=== PATIENT | male | born 1985 | race Caucasian/White ===

== ENCOUNTER → 2018-09-06 16:42 | Outpatient (CLI) | payer OTHER, SELFPAY ==
[2018-09-06 17:35] LABS: Absolute Lymphocyte Count 2.18 X10^3/ul (0.83-4.51); Absolute Neutrophil Count 4.9 X10^3/uL (2.0-7.7); Basophil# 0.02 X10^3/uL; Basophil% 0.3 % (0-1); Eosinophil# 0.18 X10^3/uL; Eosinophils% 2.3 % (0-5); Hemoglobin 14.2 g/dl (13.0-16.5); Lymphocyte # 2.18 X10^3/ul (4.0); Lymphocyte % 28.3 % (19-41); Mean Corp Hgb Conc 35.5 g/gl (32-36); Mean Corpuscular Hgb 28.8 pg (27.0-32.0); Mean Corpuscular Volume 81.1 fL (80-94); Mean Platelet Vol. 9.4 fl (6.2-12.0); Monocyte# 0.39 X10^3/uL; Monocyte% 5.1 % (0-10); Neutrophil # 4.93 X10^3/uL (2.7-7.7); Neutrophil % 63.9 % (47-70); POSITIVE COUNT NO; POSITIVE DIFFERENTIAL NO; POSITIVE MORPHOLOGY NO; Platelet Count 241 K/mm3 (150-450); RBC Distribution Width CV 12.1 % (11.6-14.6); RBC Distribution Width SD 34.9 fl (35.1-43.9); Red Blood Count 4.93 M/mm3 (4.6-6.2); White Blood Count 7.7 K/mm3 (4.4-11.0)
[2018-09-06 18:13] LABS: ALB/GLOB Ratio 1.1 RATIO (0.9-2.4); AST(SGOT) 18 U/L (15-37); Alanine Aminotransfer ALT/SGPT 26 U/L (16-61); Albumin, Serum 4.2 g/dL (3.2-5.0); Alkaline Phosphatase 78 U/L (45-117); Anion Gap 4 (5-15); BUN 15 mg/dL (7-18); BUN/Creat Ratio 14.4 RATIO (10-20); Calcium,Total 8.9 mg/dL (8.5-10.1); Chloride 105 mmol/L (98-107); Creatinine, Serum 1.04 mg/dL (0.70-1.30); EST Glomerular Filtration Rate 89 mL/min (>60); Est Glom Filt Rate - Afr Amer 107 mL/min (>60); Globulin 3.7 g/dL (2.2-4.2); Glucose 87 mg/dL (74-106); Potassium 3.8 mmol/L (3.5-5.1); Protein, Total 7.9 g/dL (6.4-8.2); Sodium Level 138 mmol/L (136-145)
[2018-09-09 20:07] LABS: HEPATITIS B SURFACE AG Negative (Negative); Hepatitis A AB, Total Negative (Negative); Hepatitis A IgM Antibody Negative (Negative); Hepatitis B Core AB IgM Negative (Negative); Hepatitis B Core Ab Total Negative (Negative); Hepatitis C Ab 0.1 s/co ratio (0.0-0.9); QNTFERON TB Mitogen Value > 10.00 IU/mL (.); QNTFERON TB Nil Value 0.02 IU/mL (.); QNTFERON TB1+ Ag Value 0.02 IU/mL (.); QNTFERON TB2+ Ag Value 0.03 IU/mL (.)
[2018-09-10 15:15] LABS: Hep B Surface Antibodies Non Reactive (.); QNTIFERON TB Positive Criteria Negative (Negative)
== END ==
LOC: MTLAB 16:50
PROVIDERS: Family Provider Family Medicine; PCP Family Medicine; Referring Provider Dermatology Pediatric Dermatology; Visit Provider Dermatology Pediatric Dermatology
DX: L40.0 Psoriasis vulgaris (principal); L40.59 Other psoriatic arthropathy; Z79.899 Other long term (current) drug therapy
CPT/HCPCS: 36415; 80053; 85025; 86480; 86704; 86705; 86706; 86708; 86709; 86803; 87340

== ENCOUNTER → 2019-07-27 08:30 | Outpatient (CLI) | payer OTHER, SELFPAY ==
[2019-07-27 10:10] LABS: Absolute Lymphocyte Count 1.76 X10^3/uL (0.83-4.51); Basophil# 0.02 X10^3/uL; Basophil% 0.3 % (0-1); Eosinophil# 0.12 X10^3/uL; Eosinophils% 1.9 % (0-5); Hematocrit 42.1 % (40-54); Hemoglobin 14.1 g/dL (13.0-16.5); Lymphocyte # 1.76 X10^3/ul (4.0); Lymphocyte % 27.3 % (19-41); Mean Corp Hgb Conc 33.5 g/dL (32-36); Mean Corpuscular Hgb 27.7 pg (27.0-32.0); Mean Corpuscular Volume 82.7 fL (80-94); Mean Platelet Vol. 9.9 fl (6.2-12.0); Monocyte% 7.8 % (0-10); NRBC Flagged by Analyzer 0 % (0-5); Neutrophil # 4.03 X10^3/uL (2.7-7.7); Neutrophil % 62.4 % (47-70); Platelet Count 251 K/mm3 (150-450); RBC Distribution Width CV 11.9 % (11.6-14.6); RBC Distribution Width SD 35.3 fl (35.1-43.9); Red Blood Count 5.09 M/mm3 (4.6-6.2); White Blood Count 6.5 K/mm3 (4.4-11.0)
[2019-07-27 10:31] LABS: AST(SGOT) 21 U/L (15-37); Alanine Aminotransfer ALT/SGPT 50 U/L (16-61); Albumin, Serum 3.9 g/dL (3.2-5.0); Alkaline Phosphatase 78 U/L (45-117); Anion Gap 6 (5-15); BUN 11 mg/dL (7-18); BUN/Creat Ratio 14.6 RATIO (10-20); Calcium,Total 9.2 mg/dL (8.5-10.1); Chloride 105 mmol/L (98-107); Creatinine, Serum 0.75 mg/dL (0.70-1.30); EST Glomerular Filtration Rate 128 mL/min (>60); Est Glom Filt Rate - Afr Amer 155 mL/min (>60); Glucose 89 mg/dL (74-106); Protein, Total 7.9 g/dL (6.4-8.2); Sodium Level 139 mmol/L (136-145)
[2019-07-31 03:06] LABS: QNTFERON TB Mitogen Value > 10.00 IU/mL (.); QNTFERON TB Nil Value 0.01 IU/mL (.); QNTFERON TB1+ Ag Value 0.02 IU/mL (.); QNTFERON TB2+ Ag Value 0.02 IU/mL (.)
[2019-07-31 11:57] LABS: QNTIFERON TB Positive Criteria Negative (Negative)
== END ==
LOC: MTLAB 08:32
PROVIDERS: PCP Family Medicine; Referring Provider Nurse Practitioner Family; Visit Provider Nurse Practitioner Family
DX: L40.0 Psoriasis vulgaris (principal); Z79.899 Other long term (current) drug therapy
CPT/HCPCS: 36415; 80053; 85025; 86480

== ENCOUNTER → 2020-08-08 08:39 | Outpatient (CLI) | payer OTHER, SELFPAY ==
[2020-08-08 10:22] LABS: Absolute Lymphocyte Count 1.57 X10^3/uL (0.83-4.51); Absolute Neutrophil Count 3.9 X10^3/uL (2.0-7.7); Basophil# 0.03 X10^3/uL; Basophil% 0.5 % (0-1); Eosinophil# 0.11 X10^3/uL; Eosinophils% 1.8 % (0-5); Hematocrit 41.4 % (40-54); Hemoglobin 14.4 g/dL (13.0-16.5); Lymphocyte # 1.57 X10^3/ul (4.0); Mean Corp Hgb Conc 34.8 g/dL (32-36); Mean Corpuscular Volume 83.3 fL (80-94); Mean Platelet Vol. 9.6 fl (6.2-12.0); Monocyte# 0.38 X10^3/uL; Monocyte% 6.3 % (0-10); NRBC Flagged by Analyzer 0 % (0-5); Neutrophil # 3.92 X10^3/uL (2.7-7.7); Neutrophil % 64.9 % (47-70); Platelet Count 254 K/mm3 (150-450); RBC Distribution Width CV 12.4 % (11.6-14.6); RBC Distribution Width SD 36.7 fl (35.1-43.9); Red Blood Count 4.97 M/mm3 (4.6-6.2)
[2020-08-08 10:36] LABS: Anion Gap 4 (5-15); BUN 11 mg/dL (7-18); BUN/Creat Ratio 13.3 RATIO (10-20); Calcium,Total 9.4 mg/dL (8.5-10.1); Chloride 104 mmol/L (98-107); Creatinine, Serum 0.83 mg/dL (0.70-1.30); EST Glomerular Filtration Rate 114 mL/min (>60); Est Glom Filt Rate - Afr Amer 138 mL/min (>60); Glucose 103 mg/dL (74-106); Potassium 3.8 mmol/L (3.5-5.1); Sodium Level 138 mmol/L (136-145)
[2020-08-11 03:06] LABS: QNTFERON TB Mitogen Value > 10.00 IU/mL (.); QNTFERON TB Nil Value 0.04 IU/mL (.); QNTFERON TB2+ Ag Value 0.04 IU/mL (.)
[2020-08-11 13:26] LABS: QNTIFERON TB Positive Criteria Negative (Negative)
== END ==
LOC: MTLAB 08:41
PROVIDERS: PCP Family Medicine; Referring Provider Physician Assistant; Visit Provider Physician Assistant
DX: L40.0 Psoriasis vulgaris (principal); Z79.899 Other long term (current) drug therapy
CPT/HCPCS: 36415; 80048; 85025; 86480

== ENCOUNTER → 2022-09-09 | Outpatient (CLI) | payer OTHER, SELFPAY ==
--- NOTE | 2022-09-09 10:02 | RAD_ITS ---
INDICATION: OTHER PSORIATIC ARTHROPATHY EXAMINATION/TECHNIQUE: X-RAY - XR Chest 2 Views COMPARISON: FINDINGS: LINES/DEVICES: None. LUNGS: No consolidation. No pneumothorax. MEDIASTINUM: Unremarkable. CARDIAC SILHOUETTE: Not enlarged. BONES AND SOFT TISSUES: No acute abnormalities. RAD/Chest PA and Lateral IMPRESSION: No evidence of active intrathoracic disease. Electronically Signed: Huma Lopez MD at 7:29 EDT ,
--- NOTE | 2022-09-09 10:02 | RAD_ITS ---
INDICATION: OTHER PSORIATIC ARTHROPATHY EXAMINATION/TECHNIQUE: X-RAY - XR Pelvis 1 or 2 Views COMPARISON: None. FINDINGS: No fracture demonstrated. The femoral heads are normal contour. No dislocation of the hips. The sacroiliac joints are symmetric and unremarkable. RAD/Pelvis 1 or 2 Views IMPRESSION: Unremarkable single view pelvis. Electronically Signed: Huma Lopez MD at 7:30 EDT ,
[2022-09-09 12:40] LABS: Absolute Neutrophil Count 4.3 X10^3/uL (2.0-7.7); Basophil# 0.04 X10^3/uL; Basophil% 0.6 % (0-1); Eosinophil# 0.11 X10^3/uL; Eosinophils% 1.7 % (0-5); Hematocrit 43.3 % (40-54); Hemoglobin 14.7 g/dL (13.0-16.5); Lymphocyte % 24.7 % (19-41); Mean Corp Hgb Conc 33.9 g/dL (32-36); Mean Corpuscular Hgb 28.5 pg (27.0-32.0); Mean Corpuscular Volume 84.1 fL (80-94); Mean Platelet Vol. 9.9 fl (6.2-12.0); Monocyte# 0.38 X10^3/uL; Monocyte% 5.9 % (0-10); NRBC Flagged by Analyzer 0 % (0-5); Neutrophil # 4.33 X10^3/uL (2.7-7.7); Neutrophil % 66.6 % (47-70); Platelet Count 282 K/mm3 (150-450); RBC Distribution Width CV 11.9 % (11.6-14.6); RBC Distribution Width SD 35.9 fl (35.1-43.9); Red Blood Count 5.15 M/mm3 (4.6-6.2); White Blood Count 6.5 K/mm3 (4.4-11.0)
[2022-09-09 13:26] LABS: ALB/GLOB Ratio 0.9 RATIO (0.9-2.4); AST(SGOT) 21 U/L (15-37); Alanine Aminotransfer ALT/SGPT 33 U/L (16-61); Albumin, Serum 3.9 g/dL (3.2-5.0); Alkaline Phosphatase 78 U/L (45-117); Anion Gap 3 (5-15); BUN 9 mg/dL (7-18); BUN/Creat Ratio 11.9 RATIO (10-20); CRP 6.88 mg/L (0.0-3.0); Calcium,Total 9.7 mg/dL (8.5-10.1); Chloride 106 mmol/L (98-107); Creatinine, Serum 0.76 mg/dL (0.70-1.30); EST Glomerular Filtration Rate 125 mL/min (>60); Est Glom Filt Rate - Afr Amer 151 mL/min (>60); Globulin 4.2 g/dL (2.2-4.2); Glucose 89 mg/dL (74-106); Potassium 3.9 mmol/L (3.5-5.1); Protein, Total 8.1 g/dL (6.4-8.2); Sodium Level 138 mmol/L (136-145)
[2022-09-09 14:10] LABS: Hepatitis B Surface Antibody Non-Reactive; Hepatitis B Surface Antigen Non-Reactive (Nonreactive); Hepatitis C Antibody Non-Reactive (Nonreactive)
[2022-09-09 14:36] LABS: Erythrocyte Sedimentation Rate 6 mm/hr (0-20)
[2022-09-11 16:09] LABS: CCP IgG Antibodies 10 units (0-19); QNTFERON TB Mitogen Value > 10.00 IU/mL (.); QNTFERON TB Nil Value 0 IU/mL (.); QNTFERON TB1+ Ag Value 0 IU/mL (.); QNTFERON TB2+ Ag Value 0 IU/mL (.); QNTIFERON TB Positive Criteria Negative (Negative)
== END | disposition home or self-care (01) ==
LOC: MTLAB 09:59
PROVIDERS: PCP Nurse Practitioner Family; Referring Provider Internal Medicine Rheumatology; Visit Provider Internal Medicine Rheumatology
DX: L40.59 Other psoriatic arthropathy (principal); M79.7 Fibromyalgia
CPT/HCPCS: 36415; 71046; 72170; 80053; 85025; 85652; 86140; 86200; 86431; 86480; 86706; 86803; 87340

== ENCOUNTER → 2024-11-03 | Outpatient (CLI) | payer OTHER, SELFPAY ==
[2024-11-03 16:16] LABS: ALB/GLOB Ratio 1.4 RATIO (0.9-2.4); AST(SGOT) 21 U/L (<=37); Alanine Aminotransfer ALT/SGPT 21 U/L (<=46); Albumin, Serum 4.4 g/dL (3.5-5.0); Alkaline Phosphatase 80 U/L (40-129); Anion Gap 13 (5-15); BUN 11 mg/dL (4-19); BUN/Creat Ratio 16.3 RATIO (10-20); CRP 6.53 mg/L (0.0-3.0); Calcium,Total 9.5 mg/dL (7.6-11.0); Carbon Dioxide 23.8 mmol/L (21.0-32.0); Chloride 103 mmol/L (98-108); Creatinine, Serum 0.68 mg/dL (0.70-1.20); EST Glomerular Filtration Rate 123 (>60); Globulin 3.1 g/dL (2.2-4.2); Glucose 96 mg/dL (70-99); Hepatitis B Surface Antigen Nonreactive (Nonreactive); Hepatitis C Antibody Nonreactive (Nonreactive); Potassium 3.7 mmol/L (3.3-5.1); Protein, Total 7.4 g/dL (5.9-8.4); Rheumatoid Factor 24.5 IU/mL (<15); Sodium Level 140 mmol/L (133-145); Total Bilirubin 0.51 mg/dL (0.00-1.30)
[2024-11-03 16:48] LABS: Hepatitis B Surface Antibody Nonreactive
[2024-11-03 17:02] LABS: Absolute Lymphocyte Count 1.79 X10^3/uL (0.83-4.51); Absolute Neutrophil Count 4.9 X10^3/uL (2.0-7.7); Basophil# 0.02 X10^3/uL; Basophil% 0.3 % (0-1); Eosinophils% 1.4 % (0-5); Hematocrit 41.1 % (40-54); Hemoglobin 14.1 g/dL (13.0-16.5); Lymphocyte # 1.79 X10^3/ul (0.83-4.51); Lymphocyte % 24.4 % (19-41); Mean Corp Hgb Conc 34.3 g/dL (32-36); Mean Corpuscular Hgb 28.4 pg (27.0-32.0); Mean Corpuscular Volume 82.9 fL (80-94); Mean Platelet Vol. 9.9 fl (6.2-12.0); Monocyte# 0.53 X10^3/uL; Monocyte% 7.2 % (0-10); NRBC Flagged by Analyzer 0 % (0-5); Neutrophil # 4.86 X10^3/uL (2.7-7.7); Neutrophil % 66.2 % (47-70); Platelet Count 282 K/mm3 (150-450); RBC Distribution Width CV 12.2 % (11.6-14.6); RBC Distribution Width SD 36.6 fl (35.1-43.9); Red Blood Count 4.96 M/mm3 (4.6-6.2); White Blood Count 7.3 K/mm3 (4.4-11.0)
[2024-11-03 17:16] LABS: Erythrocyte Sedimentation Rate 9 mm/hr (0-20)
--- OUTSIDE RECORDS SUMMARY | 2024-11-03 17:58 | XMS RPT_ITS | CCD ---
Author Organization [facility] Inform ion [facility] Care Team Providers Care Petroleum Geologist Name Role Phone NIKOLAI VENTURA Unavailable Unavailable FAUZIAELDAICA L Unavailable Unavailabl e RENEE BARR Unavailable Unavaila JEFERSON Pack Unavailable Unavailable FAUZIA, LAVERN-AN L Unavailable Unavailabl e FAUZIA, IQRAAN L Unavailable Unavailabl e Baljit SOLUTION DESIGN AND ANALYSIS MANAGER-FUEL ISLAND ATTENDANTMala Primary Care Provider PIERCE SANCHEZ Referring Unavailable MALA WAN Attending Unavailable MALA WAN Primary Care Unavailable Sophie Herndon Attending Unavailable Sophie Herndon Referring Unavailable Mala aWn NP Primary Care Unavailable SOPHIE HERNDON Attending Unavailable SOPHIE HERNDON Primary Care Unavailable SOPHIE HERNDON Admitting Unavailable SOPHIE HERNDON MD Admitting Unavailable SOPHIE HERNDON MD Attending Unavailable SOPHIE HERNDON MD Primary Care Unavailable Unavailable Primary Care Provider Unavailabl e Petros'GWEN EATON Referring Unavailable O'ANGELITO, GWEN Referring Unavailable O'ANGELITO, GWEN Referring Unavailable O'ANGELITO, GWEN Referring Unavailable O'ANGELITO, GWEN Referring Unavailable O'ANGELITO, GWEN Referring Unavailable O'ANGELITO, GWEN Referring Unavailable O'ANGELITO, GWEN Referring Unavailable O'ANGELITO, GWEN Referring Unavailable O'ANGELITO, GWEN Referring Unavailable O'ANGELITO, GWEN Referring Unavailable O'ANGELITO, GWEN Referring Unavailable O'ANGELITO, GWEN Referring Unavailable Medications Current Medications Medication Drug Class(es) Dates Sig (Normalized) Sig (Original) Albuterol (13 sources) beta2-Adrenergic Agonist ALBUTEROL INHALATION Inhale as instructed as needed. 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 Other upper respiratory disease (1 source) Vocal cord dysfunction; Translations: [Other diseases of vocal cords] Episodic Spondylosis; intervertebral disc disorders; other back problems (20 sources) Acute low back pain; Translations: [Acute bilateral low back pain, unspecified whether sciatica present] Onset: 01-25-2024 01-25-2024 Episodic Unclassified (1 source) Unknown / UNK(Unknown) Onset: 03-30-2017 Unclassified (1 source) Acute bilateral low back pain without sciatica; Translations: [Acute bilateral low back pain without sciatica] Onset: 01-25-2024 Unclassified (1 source) Physical Therapy Onset: 03-01-2024 Unclassified (1 source) Acute bilateral low back pain, unspecified whether sciatica present; Translations: [Acute bilateral low back pain, unspecified whether sciatica present] Onset: 01-25-2024 Past or Other Problems Problem Classification Problem Date Documented Da te Episodic/Chronic Unclassified (1 source) SINUS ISSUES Onset: 03-30-2017 Results Test Name Value Interpretation Reference Range [facility] OT/PT/Speech Visit (UNPTOP) ----- TATY LOYA ([id number]) 1985 M Date Time Provider Department 03/09/24 2:45 PM THERESA FERMIN Date Time Provider Department [place] 03/09/2024 2:45 PM [id number] FERMIN Pending Sale To [facility] Reason for Visit: Physical Therapy [503] PT Discharge [752] Primary Visit Diagnosis:Acute bilateral low back pain without sciatica [M54.50] Allergies As of Date: 03/09/2024 (No Known Allergies) Date Reviewed: 02/27/2021 Reviewed by: Kyara Hickman MA - Fully Assessed Prescriptions as of 05/08/2024 - TALTZ AUTOINJECTOR 80 mg/mL pen - ALBUTEROL INHALATION Inhale as instructed as needed. Custodial Operations Manager: Addendum Therapy (PT/OT/Speech/Resp) ID: [id number] 03/09/2024 3:48 PM Author: THERESA FERMIN Signed by THERESA FERMIN PT on 03/09/2024 at 3:48 PM * * * This document replaces document [id number] * * * Document text: Program_ID:[id number] Access Code: [email or web address] URL: [email or web address] Date: 03-09-2024 Prepared By: Theresa Fermin Program Notes Exercises - Seated Hamstring Stretch - 1 x daily - 7 x weekly - 3 sets - 10 reps - Roller Massage Elongated Hamstring Release - 1 x daily - 7 x weekly - 3 sets - 10 reps - Supine Hamstring Stretch with Strap - 1 x daily - 7 x weekly - 3 sets - 10 reps - Supine Single Knee to Chest Stretch - 1 x daily - 7 x weekly - 3 sets - 10 reps - Prone Press Up - 1 x daily - 7 x weekly - 3 sets - 10 reps - Supine Posterior Pelvic Tilt - 1 x daily - 7 x weekly - 3 sets - 10 reps - Goblet Squat with Kettlebell - 1 x daily - 7 x weekly - 3 sets - 10 reps - Single-Leg Solomon Islander Deadlift With Kettlebell - 1 x daily - 7 x weekly - 3 sets - 10 reps - Kettlebell Bottom Up Carry - 1 x daily - 7 x weekly - 3 sets - 10 reps - Half-Kneeling Bottoms Up Kettlebell Overhead Press - 1 x daily - 7 x weekly - 3 sets - 10 reps - Kettlebell Drag - 1 x daily - 7 x weekly - 3 sets - 10 reps - Spanish Twists Feet off Ground with Ball - 1 x daily - 7 x weekly - 3 sets - 10 reps - Bent Over Single Arm Shoulder Row with Dumbbell - 1 x daily - 7 x weekly - 3 sets - 10 reps - Side Stepping with Resistance at Ankles - 1 x daily - 7 x weekly - 3 sets - 10 reps - Forward Monster Walks - 1 x daily - 7 x weekly - 3 sets - [address] [facility] THERAPY NTon 03-09-2024 THERAPY NT HNO ID: [id number] Author: THERESA FERMIN PT Service: ? Author Type: Physical Therapist Type: Therapy (PT/OT/Speech/Resp) Filed: 03/09/2024 15:48 Note Text: Program_ID:[id number] Access Code: [email or web address] URL: [email or web address] Date: 03-09-2024 Prepared By: Theresa Fermin Program Notes Exercises - Seated Hamstring Stretch - 1 x daily - 7 x weekly - 3 sets - 10 reps - Roller Massage Elongated Hamstring Release - 1 x daily - 7 x weekly - 3 sets - 10 reps - Supine Hamstring Stretch with Strap - 1 x daily - 7 x weekly - 3 sets - 10 reps - Supine Single Knee to Chest Stretch - 1 x daily - 7 x weekly - 3 sets - 10 reps - Prone Press Up - 1 x daily - 7 x weekly - 3 sets - 10 reps - Supine Posterior Pelvic Tilt - 1 x daily - 7 x weekly - 3 sets - 10 reps - Goblet Squat with Kettlebell - 1 x daily - 7 x weekly - 3 sets - 10 reps - Single-Leg [place] Islander Deadlift With Kettlebell - 1 x daily - 7 x weekly - 3 sets - 10 reps - Kettlebell Bottom Up Carry - 1 x daily - 7 x weekly - 3 sets - 10 reps - Half-Kneeling Bottoms Up Kettlebell Overhead Press - 1 x daily - 7 x weekly - 3 sets - 10 reps - Kettlebell Drag - 1 x daily - 7 x weekly - 3 sets - 10 reps - Spanish Twists Feet off Ground with Ball - 1 x daily - 7 x weekly - 3 sets - 10 reps - Bent Over Single Arm Shoulder Row with Dumbbell - 1 x daily - 7 x weekly - 3 sets - 10 reps - Side Stepping with Resistance at Ankles - 1 x daily - 7 x weekly - 3 sets - 10 reps - Forward Monster Walks - 1 x daily - 7 x weekly - 3 sets - [address] [facility] CNTHERAPYon 03-07-2024 CNTHERAPY OT/PT/Speech Visit (UNPTOP) ----- TATY LOYA ([id number]) 1985 M Date Time Provider Department 03/07/24 7:00 AM THERESA FERMIN Date Time Provider Department Center 03/07/2024 7:00 AM [id number], AMANDA [employer] Pending Sale To [facility] Reason for Visit: Physical Therapy [503] Primary Visit Diagnosis:Acute bilateral low back pain without sciatica [M54.50] Allergies As of Date: 03/07/2024 (No Known Allergies) Date Reviewed: 02/27/2021 Reviewed by: Kyara Hickman MA - Fully Assessed Prescriptions as of 03/07/2024 - TALTZ AUTOINJECTOR 80 mg/mL pen - ALBUTEROL INHALATION [facility]hale [facility]/PT/Speech Visit (UNPTOP) ----- TAYT LOYA ([id number]) 1985 M Date Time Provider Department 03/01/24 2:45 PM SHAKIRA HEATON [facility] Date Time Provider Department Center 03/01/2024 2:45 PM [id number] SHAKIRA [facility] [employer] [facility] Reason for Visit: Physical Therapy [503] Primary Visit Diagnosis:Acute bilateral low back pain without sciatica [M54.50] Other Visit Diagnosis:Acute bilateral low back pain, unspecified whether sciatica present [M54.50] Allergies As of Date: 03/01/2024 (No Known Allergies) Date Reviewed: 02/27/2021 Reviewed by: Kyara Hickman MA - Fully Assessed Prescriptions as of 03/01/2024 - TALTZ AUTOINJECTOR 80 mg/mL pen - ALBUTEROL INHALATION Inhale as instructed as needed. [facility] ----- TATY LOYA ([id number]) 1985 M Date Time Provider Department 02/28/24 2:00 PM THERESA FERMIN [facility] Date Time Provider Department Center 02/28/2024 2:00 PM [id number], THERESA [facility] Reason for Visit: Physical Therapy [503] Primary Visit Diagnosis:Acute bilateral low back pain without sciatica [M54.50] Allergies As of Date: 02/28/2024 (No Known Allergies) Date Reviewed: 02/27/2021 Reviewed by: Kyara Hickman MA - Fully Assessed Prescriptions as of 02/28/2024 - TALTZ AUTOINJECTOR 80 mg/mL pen - ALBUTEROL INHALATION Inhale as instructed as needed. [facility] 02-25-2024 CNTHERAPY OT/PT/Speech Visit (UNPTOP) ----- TATY LOYA ([id number]) 1985 M Date Time Provider Department 02/25/24 1:15 PM [facility] [employer] Date Time Provider Department Center 02/25/2024 1:15 PM [id number], [facility]ESA [facility] Reason for Visit: PT Progress Note [1596] Primary Visit Diagnosis:Acute bilateral low back pain without sciatica [M54.50] Allergies As of Date: 02/25/2024 (No Known Allergies) Date Reviewed: 02/27/2021 Reviewed by: Kyara Hickman MA - Fully Assessed Prescriptions as of 02/25/2024 - TALTZ AUTOINJECTOR 80 mg/mL pen - ALBUTEROL INHALATION Inhale as instructed as needed. [facility] 02-21-2024 CNTHERAPY OT/PT/Speech Visit (UNPTOP) ----- TATY LOYA ([id number]) 1985 M Date Time Provider Department 02/21/24 2:45 PM [facility] Date Time Provider Department Center 02/21/2024 2:45 PM [id number] SHAKIRA [employer] Reason for Visit: Physical Therapy [503] Primary Visit Diagnosis:Acute bilateral low back pain without sciatica [M54.50] Other Visit Diagnosis:Acute bilateral low back pain, unspecified whether sciatica present [M54.50] Allergies As of Date: 02/21/2024 (No Known Allergies) Date Reviewed: 02/27/2021 Reviewed by: Kyara Hickman MA - Fully Assessed Prescriptions as of 02/21/2024 - TALTZ AUTOINJECTOR 80 mg/mL pen - ALBUTEROL INHALATION Inhale as instructed as needed. [facility] 02-14-2024 CNTHERAPY OT/PT/Speech Visit (UNPTOP) ----- TATY LOYA ([id number]) 1985 M Date Time Provider Department 02/14/24 2:00 PM SHAKIRA HEATON Date Time Provider Department Center 02/14/2024 2:00 PM [id number], SHAKIRA [employer] Pending Sale To [facility] Reason for Visit: Physical Therapy [503] Primary Visit Diagnosis:Acute bilateral low back pain without sciatica [M54.50] Other Visit Diagnosis:Acute bilateral low back pain, unspecified whether sciatica present [M54.50] Allergies As of Date: 02/14/2024 (No Known Allergies) Date Reviewed: 02/27/2021 Reviewed by: Kyara Hickman MA - Fully Assessed Prescriptions as of 02/14/2024 - TALTZ AUTOINJECTOR 80 mg/mL pen - ALBUTEROL INHALATION Inhale as instructed as needed. [facility] CN[facility]Y OT/PT/Speech Visit (UNPTOP) ----- TATY LOYA ([id number]) 1985 M Date Time Provider Department 02/09/24 7:00 AM THERESA FERMIN [facility] Date Time Provider Department Center 02/09/2024 7:00 AM [id number], AMANDA [facility] Reason for Visit: Physical Therapy [503] Primary Visit Diagnosis:Acute bilateral low back pain without sciatica [M54.50] Allergies As of Date: 02/09/2024 (No Known Allergies) Date Reviewed: 02/27/2021 Reviewed by: Kyara Hickman MA - Fully Assessed Prescriptions as of 02/09/2024 - TALTZ AUTOINJECTOR 80 mg/mL pen - ALBUTEROL INHALATION Inhale as instructed as needed. [facility] CNTHERAPY OT/PT/Speech Visit (UNPTOP) ----- TATY LOYA ([id number]) 1985 M Date Time Provider Department 02/07/24 2:00 PM THERESA FERMIN [employer] Date Time Provider Department Center 02/07/2024 2:00 PM [id number], AMANDA [facility] Reason for Visit: Physical Therapy [503] Primary Visit Diagnosis:Acute bilateral low back pain without sciatica [M54.50] Allergies As of Date: 02/07/2024 (No Known Allergies) Date Reviewed: 02/27/2021 Reviewed by: Kyara Hickman MA - Fully Assessed Prescriptions as of 02/07/2024 - TALTZ AUTOINJECTOR 80 mg/mL pen - ALBUTEROL INHALATION Inhale as instructed as needed. [facility] 02-[facility]24 CNTHERAPY OT/PT/Speech Visit (UNPTOP) ----- TATY LOYA ([id number]) 1985 M Date Time Provider Department 02/04/24 2:00 PM JENY [facility]A [facility] [employer] Date Time Provider Department Center 02/04/2024 2:00 PM [id number] [facility] Reason for Visit: Physical Therapy [503] Primary Visit Diagnosis:Acute bilateral low back pain without sciatica [M54.50] Allergies As of Date: 02/04/2024 (No Known Allergies) Date Reviewed: 02/27/2021 Reviewed by: Kyara Hickman MA - Fully Assessed Prescriptions as of 02/04/2024 - TALTZ AUTOINJECTOR 80 mg/mL pen - ALBUTEROL INHALATION Inhale as instructed as needed. [facility] CN[facility]APY OT/PT/Speech Visit (UNPTOP) ----- TATY LOYA ([id number]) 1985 M Date Time Provider Department 01/31/24 2:00 PM JENY THERESA [facility] Date Time Provider Department Center 01/31/2024 2:00 PM [id number], THERESA [facility] Reason for Visit: Physical Therapy [503] Primary Visit Diagnosis:Acute bilateral low back pain without sciatica [M54.50] Allergies As of Date: 01/31/2024 (No Known Allergies) Date Reviewed: 02/27/2021 Reviewed by: Kyara Hickman MA - Fully Assessed Prescriptions as of 01/31/2024 - TALTZ AUTOINJECTOR 80 mg/mL pen - ALBUTEROL INHALATION Inhale as instructed as needed. [facility] CNTHERAPY OT/PT/Speech Visit (UNPTOP) ----- TATY LOYA ([id number]) 1985 M Date Time Provider Department 01/27/24 2:45 PM JENY THERESA [employer] Date Time Provider Department Center 01/27/2024 2:45 PM [id number], [facility] Reason for Visit: Physical Therapy [503] Primary Visit Diagnosis:Acute bilateral low back pain without sciatica [M54.50] Allergies As of Date: 01/27/2024 (No Known Allergies) Date Reviewed: 02/27/2021 Reviewed by: Kyara Hickman MA - Fully Assessed Prescriptions as of 01/27/2024 - TALTZ AUTOINJECTOR 80 mg/mL pen - ALBUTEROL INHALATION Inhale as instructed as needed. [facility] CNTHERAPYon 01-25-2024 CNTHERAPY OT/PT/Speech Visit (UNPTOP) ----- TATY LOYA ([id number]) 1985 M Date Time Provider Department 01/25/24 2:45 PM THERESA FERMIN[employer] Date Time Provider Department Center 01/25/2024 2:45 PM [id number] THERESA [facility] Reason for Visit: PT Eval [747] Primary Visit Diagnosis:Acute bilateral low back pain, unspecified whether sciatica present [M54.50] Allergies As of Date: 01/25/2024 (No Known Allergies) Date Reviewed: 02/27/2021 Reviewed by: Kyara Hickman MA - Fully Assessed Prescriptions as of 01/27/2024 - TALTZ AUTOINJECTOR 80 mg/mL pen - ALBUTEROL INHALATION Inhale as instructed as needed. Custodial Operations Manager: Addendum Therapy (PT/OT/Speech/Resp) ID: [id number] 01/25/2024 3:22 PM Author: THERESA FERMIN Signed by THERESA FERMIN PT on 01/25/2024 at 3:22 PM * * * This document replaces document [id number] * * * Document text: Program_ID:[id number] Access Code: [email or web address] URL: [email or web address] Date: 01-25-2024 Prepared By: Theresa Ferimn Program Notes Exercises - Seated Hamstring Stretch - 1 x daily - 7 x weekly - 3 sets - 10 reps - Roller Massage Elongated Hamstring Release - 1 x daily - 7 x weekly - 3 sets - 10 reps - Supine Hamstring Stretch with Strap - 1 x daily - 7 x weekly - 3 sets - 10 reps - Supine Single Knee to Chest Stretch - 1 x daily - 7 x weekly - 3 sets - 10 reps - Prone Press Up - 1 x daily - 7 x weekly - 3 sets - 10 reps - Supine Posterior Pelvic Tilt - 1 x daily - 7 x weekly - 3 sets - [address] [facility] THERAPY NTon 01-25-2024 THERAPY NT HNO ID: [id number] Author: THERESA FERMIN PT Service: ? Author Type: Physical Therapist Type: Therapy (PT/OT/Speech/Resp) Filed: 01/25/2024 15:22 Note Text: Program_ID:[id number] Access Code: [email or web address] URL: [email or web address] Date: 01-25-2024 Prepared By: Theresa Fermin Program Notes Exercises - Seated Hamstring Stretch - 1 x daily - 7 x weekly - 3 sets - 10 reps - Roller Massage Elongated Hamstring Release - 1 x daily - 7 x weekly - 3 sets - 10 reps - Supine Hamstring Stretch with Strap - 1 x daily - 7 x weekly - 3 sets - 10 reps - Supine Single Knee to Chest Stretch - 1 x daily - 7 x weekly - 3 sets - 10 reps - Prone Press Up - 1 x daily - 7 x weekly - 3 sets - 10 reps - Supine Posterior Pelvic Tilt - 1 x daily - 7 x weekly - 3 sets - [address] [facility] C-REACTIVE PROTEINon 023 CRP 0.67 mg/dl Normal 0.00 - 0.90 [facility] Comment on above: Performed By: #### 2 76452 #### [facility],[address] [place] [address] CBC + DIFFon 04-27-2023 Baso # 0.00 x10EE3/UL Normal 0.00 - 0.10 [facility] Comment on above: Performed By: #### 2 17638 #### [facility],[address] [place] [address] Basophils/100 WBC (Bld) 0.4 % Normal 0.0 - 2.0 [facility] Comment on above: Performed By: #### 2 76763 #### [facility],[address] [place] [address] CBC + DIFF Normal [facility] Comment on above: Result Comment: CBC- COMPLETE BLOOD COUNT Performed By: #### 2 26675 #### [facility],[address] [place] [address] EO # 0.10 x10EE3/UL Normal 0.00 - 0.50 [facility] Comment on above: Performed By: #### 2 82556 #### [facility],[address] [place] [address] Eosinophils/100 WBC (Bld) 1.1 % Normal 0.0 - 7.0 [facility] Comment on above: Performed By: #### 2 81008 #### [facility],[address] [place] [address] Erythrocyte distribution width (RBC) [Ratio] 12.6 % Normal 12.0 - 15.6 [facility] Comment on above: Performed By: #### 2 18358 #### [facility],[address] [place] [address] Hematocrit (Bld) [Volume fraction] 39.7 % Low 40.0 - 52.0 [facility] Comment on above: Performed By: #### 2 88347 #### [facility],[address] [place] [address] Hemoglobin (Bld) [Mass/Vol] 13.5 g/dL Normal 13.0 - 17.5 [facility] Comment on above: Performed By: #### 2 40487 #### [facility],[address] [place] [address] Lymph # 2.10 x10EE3/UL Normal 0.80 - 2.80 [facility] Comment on above: Performed By: #### 2 59882 #### [facility],[address] [place] [address] Lymphocytes/100 WBC (Bld) 26.0 % Normal 20.0 - 45.0 [facility] Comment on above: Performed By: #### 2 97388 #### [facility],[address] [place], [place] [id number] MANUAL DIFF N/A Normal [facility] Comment on above: Performed By: #### 2 48579 #### [facility],[address] [place], [place] [id number] MCH (RBC) [Entitic mass] 28 pg Normal 27 - 33 [facility] Comment on above: Performed By: #### 2 39479 #### [facility],[address] [place] [address] MCHC 34 X10 3 Normal 32 - 36 [facility] Comment on above: Performed By: #### 2 47419 #### [facility],[address] [place], [place] [id number] MCV (RBC) [Entitic vol] 83 fL Normal 81 - 98 [facility] Comment on above: Performed By: #### 2 92518 #### [facility],[address] [place] [address] [place] # 0.50 x10EE3/UL Normal 0.20 - 1.00 [facility] Comment on above: Performed By: #### 2 21432 #### [facility],[address] [place] [address] MONOS % 5.7 % Normal 0.0 - 10.0 [facility] Comment on above: Performed By: #### 2 26972 #### [facility],[address] [place], [place] [id number] Morphology Reza (Bld) [Interp] N/A Normal [facility] Comment on above: Result Comment: {CD] Performed By: #### 2 98493 #### [facility],[address] [place] [address] Neut # 5.40 x10EE3/UL Normal 1.50 - 7.10 [facility] Comment on above: Performed By: #### 2 21063 #### [facility],[address] [place], [place] [id number] Neutrophils/100 WBC (Bld) 66.8 % Normal 46.0 - 76.0 [facility] Comment on above: Performed By: #### 2 00170 #### [facility],[address] [place] [address] PLATELET 284 x10EE3/UL Normal 150 - 450 [facility] Comment on above: Performed By: #### 2 13572 #### [facility],[address] [place] [address] Platelet mean volume (Bld) [Entitic vol] 8.1 fL Normal 6.4 - 10.5 [facility] Comment on above: Result Comment: AUTO MATED DIFFERENTIAL Performed By: #### 2 30406 #### [facility],[address] [place] [address]892 RBC 4.79 x 10EE6/UL Normal 4.50 - 6.00 [facility] Comment on above: Performed By: #### 2 14608 #### [facility],[address] [place] [address] 28096 WBC 8.0 x 10EE3/UL Normal 4.5 - 10.8 [facility] Comment on above: Performed By: #### 2 60513 #### [facility],[address] [place] [address]21 CMP with eGFRon 04-27-2023 AGE 37 years Normal [facility] Comment on above: Performed By: #### 2 35492 #### [facility],[address] [place] [address] 84035 Albumin [Mass/Vol] 3.8 g/dL Normal 3.4 - 5.0 [facility] Comment on above: Performed By: #### 2 08948 #### [facility],[address] [place] [address] 61300 Albumin/Globulin [Mass ratio] 1.1 {ratio} Normal 0.9 - 1.6 [facility] Comment on above: Performed By: #### 2 22536 #### [facility],[address] [place] [address]5260 ALK PHOS 75 U/L Normal 46 - 116 [facility] Comment on above: Performed By: #### 2 93296 #### [facility],[address] [place] [address] 64628 ALT [Catalytic activity/Vol] 31 U/L Normal 16 - 63 [facility] Comment on above: Performed By: #### 2 73220 #### [facility],[address] [place] [address] 55458 Anion gap [Moles/Vol] 11 mmol/L Normal 10 - 20 [facility] Comment on above: Performed By: #### 2 30051 #### [facility],[address] [place] [address] 27149 AST [Catalytic activity/Vol] 18 U/L Normal 15 - 37 [facility] Comment on above: Performed By: #### 2 46769 #### [facility],[address] [place] [address] 44293 B/C RATIO 12 ratio Normal 0 - 30 [facility] Comment on above: Performed By: #### 2 20044 #### [facility],[address] [place] [address]336 Bilirubin [Mass/Vol] 0.5 mg/dL Normal 0.2 - 1.0 [facility] Comment on above: Performed By: #### 2 84128 #### [facility],[address] [place] [address]35 Calcium [Mass/Vol] 8.9 mg/dL Normal 8.5 - 10.1 [facility] Comment on above: Performed By: #### 2 20423 #### [facility],[address] [place] [address] 41499 Chloride [Moles/Vol] 102 mmol/L Normal 98 - 107 [facility] Comment on above: Performed By: #### 2 42357 #### [facility],[address] [place] [address] 64328 CMP with eGFR Normal [facility] Comment on above: Result Comment: COMP REHENSIVE METABOLIC PANEL Performed By: #### 2 09084 #### [facility],[address] [place] [address] 18760 CO2 [Moles/Vol] 31.9 mmol/L Normal 21.0 - 32.0 [facility] Comment on above: Performed By: #### 2 95294 #### [facility],[address] [place] [address] 88304 Creatinine [Mass/Vol] 0.84 mg/dL Normal 0.70 - 1.30 [facility] Comment on above: Performed By: #### 2 46834 #### [facility],[address] [place] [address] 05338 GFR/1.73 sq M.predicted among non-blacks MDRD (S/P/Bld) [Vol rate/Area] mL/min/{1.73_m2} Normal 60 - 999 [facility] Comment on above: Performed By: #### 2 21285 #### [facility],[address] [place] [address] 35932 Result Comment: ACCO RDING TO THE NATIONAL KIDNEY DISEASE EDUCATION PROGRAM(NKDE), A NORMAL eGFR IS A VALUE GREATER THAN OR EQUAL TO 60 ML/MIN/1.73 SQ METERS. CHRONIC KIDNEY DISEASE: <60mL/MIN/1.73 SQ METERS KIDNEY FAILURE: <15mL/MIN/1.73 SQ METERS THIS TEST SHOULD ONLY BE USED FOR PATIENTS 18 YEARS OF AGE AND OLDER. Globulin (S) [Mass/Vol] 3.6 g/dL Normal 1.5 - 3.8 [facility] Comment on above: Performed By: #### 2 71013 #### [facility],[address] [place] [address] 09403 Glucose [Mass/Vol] 80 mg/dL Normal 74 - 106 [facility] Comment on above: Performed By: #### 2 80305 #### [address] [address] Potassium [Moles/Vol] 4.1 mmol/L Normal 3.5 - 5.1 [facility] Comment on above: Performed By: #### 2 58589 #### [address] [address] Protein [Mass/Vol] 7.4 g/dL Normal 6.4 - 8.2 [facility] Comment on above: Performed By: #### 2 91749 #### [facility],[address] [place] [address] Sodium [Moles/Vol] 141 mmol/L Normal 136 - 145 [facility] Comment on above: Performed By: #### 2 54081 #### [facility],[address] [place] [address] Urea nitrogen [Mass/Vol] 10 mg/dL Normal 7 - 18 [facility] Comment on above: Performed By: #### 2 12530 #### [facility],[address] [place] [address] SEDRATEon 04-27-2023 SEDRATE 15 mm/hr Normal 0 - 20 [facility] Comment on above: Performed By: #### 2 04470 #### [facility],[address] [place] [address] CBC + DIFFon 01-23-2023 Baso # 0.10 x10EE3/UL Normal 0.00 - 0.10 [facility] Comment on above: Performed By: #### 2 95519 #### [facility],[address] [place] [address] Basophils/100 WBC (Bld) 0.9 % Normal 0.0 - 2.0 [facility] Comment on above: Performed By: #### 2 04199 #### [facility],[address] [place] [address] CBC + DIFF Normal [facility] Comment on above: Result Comment: CBC- COMPLETE BLOOD COUNT Performed By: #### 2 18834 #### [facility],[address] [place] [address] EO # 0.10 x10EE3/UL Normal 0.00 - 0.50 [facility] Comment on above: Performed By: #### 2 10107 #### [facility],[address] [place], [place] [id number] Eosinophils/100 WBC (Bld) 1.0 % Normal 0.0 - 7.0 [facility] Comment on above: Performed By: #### 2 86346 #### [facility],[address] [place], [place] [id number] Erythrocyte distribution width (RBC) [Ratio] 12.7 % Normal 12.0 - 15.6 [facility] Comment on above: Performed By: #### 2 05341 #### [facility],[address] [place] [address] Hematocrit (Bld) [Volume fraction] 43.7 % Normal 40.0 - 52.0 [facility] Comment on above: Performed By: #### 2 74431 #### [facility],[address] [place] [address] Hemoglobin (Bld) [Mass/Vol] 14.7 g/dL Normal 13.0 - 17.5 [facility] Comment on above: Performed By: #### 2 46185 #### [facility],[address] [place], [place] [id number] Lymph # 1.20 x10EE3/UL Normal 0.80 - 2.80 [facility] Comment on above: Performed By: #### 2 11849 #### [facility],[address] [place], [place] [address] Lymphocytes/100 WBC (Bld) 15.4 % Low 20.0 - 45.0 [facility] Comment on above: Performed By: #### 2 98433 #### [facility],[address] [place] [address] 02218 MANUAL DIFF N/A Normal [facility] Comment on above: Performed By: #### 2 34523 #### [facility],[address] [place] [address] 55907 MCH (RBC) [Entitic mass] 28 pg Normal 27 - 33 [facility] Comment on above: Performed By: #### 2 62104 #### [facility],[address] [place] [address] MCHC 34 X10 3 Normal 32 - 36 [facility] Comment on above: Performed By: #### 2 20966 #### [facility],[address] [place], [place] [id number] MCV (RBC) [Entitic vol] 84 fL Normal 81 - 98 [facility] Comment on above: Performed By: #### 2 20072 #### [facility],[address] [place] [address] Magoffin # 0.40 x10EE3/UL Normal 0.20 - 1.00 [facility] Comment on above: Performed By: #### 2 04935 #### [facility],[address] [place] [address] MONOS % 5.4 % Normal 0.0 - 10.0 [facility] Comment on above: Performed By: #### 2 36486 #### [facility],[address] [place], [place] [phone] Morphology Reza (Bld) [Interp] N/A Normal [facility] Comment on above: Result Comment: {CD] Performed By: #### 2 17530 #### [facility],[address] [place] [address] Neut # 5.80 x10EE3/UL Normal 1.50 - 7.10 [facility] Comment on above: Performed By: #### 2 84428 #### [facility],[address] [place], [place] [phone] Neutrophils/100 WBC (Bld) 77.3 % High 46.0 - 76.0 [facility] Comment on above: Performed By: #### 2 51442 #### [facility],[address] [place], [place] [phone] PLATELET 282 x10EE3/UL Normal 150 - 450 [facility] Comment on above: Performed By: #### 2 19621 #### [facility],[address] [place] [address] 59403 Platelet mean volume (Bld) [Entitic vol] 8.5 fL Normal 6.4 - 10.5 [facility] Comment on above: Result Comment: AUTO MATED DIFFERENTIAL Performed By: #### 2 83100 #### [facility],[address] [place] [address] 17231 RBC 5.24 x 10EE6/UL Normal 4.50 - 6.00 [facility] Comment on above: Performed By: #### 2 09493 #### [facility],[address] [place] [address] 25810 WBC 7.5 x 10EE3/UL Normal 4.5 - 10.8 [facility] Comment on above: Performed By: #### 2 22486 #### [facility],[address] [place] [address] 78957 CMP with eGFRon 01-23-2023 AGE 37 years Normal [facility] Comment on above: Performed By: #### 2 59233 #### [facility],[address] [place] [address] 14289 Albumin [Mass/Vol] 4.0 g/dL Normal 3.4 - 5.0 [facility] Comment on above: Performed By: #### 2 83927 #### [facility],[address] [place] [address] 06294 Albumin/Globulin [Mass ratio] 1.1 {ratio} Normal 0.9 - 1.6 [facility] Comment on above: Performed By: #### 2 16784 #### [facility],[address] [place] [address] 50224 ALK PHOS 80 U/L Normal 46 - 116 [facility] Comment on above: Performed By: #### 2 36443 #### [facility],[address] [place] [address] 60460 ALT [Catalytic activity/Vol] 32 U/L Normal 16 - 63 [facility] Comment on above: Performed By: #### 2 83940 #### [facility],[address] [place] [address] 57435 Anion gap [Moles/Vol] 15 mmol/L Normal 10 - 20 [facility] Comment on above: Performed By: #### 2 59588 #### [facility],[address] [place] [address] 85504 AST [Catalytic activity/Vol] 18 U/L Normal 15 - 37 [facility] Comment on above: Performed By: #### 2 06384 #### [facility],[address] [place] [address] 01016 B/C RATIO 13 ratio Normal 0 - 30 [facility] Comment on above: Performed By: #### 2 56823 #### [facility],[address] [place] [address] 73914 Bilirubin [Mass/Vol] 0.7 mg/dL Normal 0.2 - 1.0 [facility] Comment on above: Performed By: #### 2 71642 #### [facility],[address] [place] [address] 01589 Calcium [Mass/Vol] 9.2 mg/dL Normal 8.5 - 10.1 [facility] Comment on above: Performed By: #### 2 69872 #### [facility],[address] [place] [address] 88692 Chloride [Moles/Vol] 104 mmol/L Normal 98 - 107 [facility] Comment on above: Performed By: #### 2 31293 #### [facility],[address] [place] [address] 26967 CMP with eGFR Normal [facility] Comment on above: Result Comment: COMP REHENSIVE METABOLIC PANEL Performed By: #### 2 64666 #### [facility],[address] [place] [address] 29996 CO2 [Moles/Vol] 26.2 mmol/L Normal 21.0 - 32.0 [facility] Comment on above: Performed By: #### 2 86165 #### [facility],[address] [place] [address] 56244 Creatinine [Mass/Vol] 0.96 mg/dL Normal 0.70 - 1.30 [facility] Comment on above: Performed By: #### 2 78197 #### [facility],[address] [place] [address] 63706 GFR/1.73 sq M.predicted among non-blacks MDRD (S/P/Bld) [Vol rate/Area] mL/min/{1.73_m2} Normal 60 - 999 [facility] Comment on above: Performed By: #### 2 20805 #### [facility],[address] [place] [address] 09062 Result Comment: ACCO RDING TO THE NATIONAL KIDNEY DISEASE EDUCATION PROGRAM(NKDE), A NORMAL eGFR IS A VALUE GREATER THAN OR EQUAL TO 60 ML/MIN/1.73 SQ METERS. CHRONIC KIDNEY DISEASE: <60mL/MIN/1.73 SQ METERS KIDNEY FAILURE: <15mL/MIN/1.73 SQ METERS THIS TEST SHOULD ONLY BE USED FOR PATIENTS 18 YEARS OF AGE AND OLDER. Globulin (S) [Mass/Vol] 3.7 g/dL Normal 1.5 - 3.8 [facility] Comment on above: Performed By: #### 2 86681 #### [facility],[address] [place] [address] 53585 Glucose [Mass/Vol] 98 mg/dL Normal 74 - 106 [facility] Comment on above: Performed By: #### 2 91862 #### [facility],[address] [place] [address] 26404 Potassium [Moles/Vol] 3.8 mmol/L Normal 3.5 - 5.1 [facility] Comment on above: Performed By: #### 2 34947 #### [facility],[address] [place] [address] 87086 Protein [Mass/Vol] 7.7 g/dL Normal 6.4 - 8.2 [facility] Comment on above: Performed By: #### 2 32851 #### [facility],[address] [place] [address] 19982 Sodium [Moles/Vol] 141 mmol/L Normal 136 - 145 [facility] Comment on above: Performed By: #### 2 06420 #### [facility],[address] [place] [address] 53470 Urea nitrogen [Mass/Vol] 12 mg/dL Normal 7 - 18 [facility] Comment on above: Performed By: #### 2 21226 #### [facility],[address] [place] [address] 23134 CCP IgG Antibodieson 023 CCP IgG Ab. 10 units Normal 0-19 [facility] Comment on above: Result Comment: Nega tive <20 Weak positive 20 - 39 Moderate positive 40 - 59 Strong positive >59 Performed at: [facility] [address] [id number] Internet Marketing Consultant: Yovany López PhD, Phone: [phone] Performed By: #### L 4600.0100, L501.6710, L3890.6300, L505.7010, L100.0100, L101.9900, L3890.6200, L3890.6100, L3400.8000, L500.4050 ####[facility] [address] [facility] [place], [address] Quantiferon TB-Gold+on 09-11 QFT MITOGEN HERMANN > 10.00 Normal . [facility] Comment on above: Performed By: #### L 4600.0100, L501.6710, L3890.6300, L505.7010, L100.0100, L101.9900, L3890.6200, L3890.6100, L3400.8000, L500.4050 ####[facility] [address] [facility] [address] [place], [place], [id number] QFT NIL VALUE 0 IU/mL Normal . [facility] Comment on above: Performed By: #### L 4600.0100, L501.6710, L3890.6300, L505.7010, L100.0100, L101.9900, L3890.6200, L3890.6100, L3400.8000, L500.4050 ####[facility] [address] [place], [address] QFT TB GOLD+ Comment Normal . [facility] Comment on above: Result Comment: Alexandru tiFERON-TB Gold Plus is a qualitative indirect test for M tuberculosis infection (including disease) and is intended for use in conjunction with risk assessment, radiography, and other medical and diagnostic evaluations. The QuantiFERON-TB Gold Plus result is determined by subtracting the Nil value from either TB antigen (Ag) value. The Mitogen tube serves as a control for the test. Performed By: #### L 4600.0100, L501.6710, L3890.6300, L505.7010, L100.0100, L101.9900, L3890.6200, L3890.6100, L3400.8000, L500.4050 ####[facility] [address] [place], [address] QFT TB POS CRIT Negative Normal Negative [facility] Comment on above: Result Comment: No r esponse to M tuberculosis antigens detected. Infection with M tuberculosis is unlikely, but high risk individuals should be considered for additional testing (ATS/IDSA/CDC Clinical Practice Guidelines, 2017). The reference range is an Antigen minus Nil result of <0.35 IU/mL. The specimen received for QuantiFERON testing was incubated by the ordering institution. Specific procedures outlined in our Directory of Services and in the package insert for the QuantiFERON Gold (In Tube) test must be followed to enable for proper stimulation of cells for the production of interferon gamma. Chemiluminescence immunoassay methodology Performed By: #### L 4600.0100, L501.6710, L3890.6300, L505.7010, L100.0100, L101.9900, L3890.6200, L3890.6100, L3400.8000, L500.4050 ####[facility] [address] [facility] [address] [place], [place], [id number] QFT TB1+ AG HERMANN 0 IU/mL Normal . [facility] Comment on above: Performed By: #### L 4600.0100, L501.6710, L3890.6300, L505.7010, L100.0100, L101.9900, L3890.6200, L3890.6100, L3400.8000, L500.4050 ####[facility] [address] [place], [place], [id number] QFT TB2+ AG HERMANN 0 IU/mL Normal . [facility] Comment on above: Performed By: #### L 4600.0100, L501.6710, L3890.6300, L505.7010, L100.0100, L101.9900, L3890.6200, L3890.6100, L3400.8000, L500.4050 ####[facility] [address] [facility] [address] [place], [place], [id number] Absolute lymphocyte countOrd ered By: Dr. Herndon on 09-09-2022 Lymphocytes Auto (Unsp spec) [#/Vol] 1.60 10*3/uL 0.83-4.51 [facility] Basophil percentageOrdered B y: Dr. Herndon on 09-09-2022 Basophils/100 WBC (Bld) 0.6 % 0-1 [facility] Bilirubin [Mass/Vol] 0.70 mg/dL 0.20-1.00 [facility] Comment on above: For patients on eltr ombopag therapy, use of [employer] TBIL is not recommended. Chloride [Moles/Vol] 106 mmol/L 98-107 [facility] Eosinophils/100 WBC (Bld) 1.7 % 0-5 [facility] Glucose [Mass/Vol] 89 mg/dL 74-106 [facility] Neutrophils (Bld) [#/Vol] 4.3 10*3/uL 2.0-7.7 [facility] Neutrophils/100 WBC (Bld) 66.6 % 47-70 [facility] Potassium [Moles/Vol] 3.9 mmol/L 3.5-5.1 [facility] Protein [Mass/Vol] 8.1 g/dL 6.4-8.2 [facility] Sodium [Moles/Vol] 138 mmol/L 136-145 [facility] WBC (Bld) [#/Vol] 6.5 10*3/uL 4.4-11.0 [facility] Blood erythrocytes count (nu mber/volume)Ordered By: Dr. Herndon on 09-09-2022 RBC (Bld) [#/Vol] 5.15 10*6/uL 4.6-6.2 [facility] Blood hemoglobin measurement (mass/volume)Ordered By: Dr. Herndon on 09-09-2022 Hemoglobin (Bld) [Mass/Vol] 14.7 g/dL 13.0-16.5 [facility] Blood lymphocytes/100 leukoc ytesOrdered By: Dr. Herndon on 09-09-2022 Lymphocytes/100 WBC (Bld) 24.7 % 19-41 [facility] Blood monocytes/100 leukocyt esOrdered By: Dr. Herndon on 09-09-2022 Monocytes/100 WBC (Bld) 5.9 % 0-10 [facility] Blood platelet mean volumeOr dered By: Dr. Herndon on 09-09-2022 Platelet mean volume (Bld) [Entitic vol] 9.9 fL 6.2-12.0 [facility] CBC W/Diff, Automatedon 08-16 Absolute Lymph 1.60 X10 3/uL Normal 0.83-4.51 [facility] Comment on above: Performed By: #### L 4600.0100, L501.6710, L3890.6300, L505.7010, L100.0100, L101.9900, L3890.6200, L3890.6100, L3400.8000, L500.4050 #### [facility] [address] [facility] [place], [address] Absolute Neut 4.3 X10 3/uL Normal 2.0-7.7 [facility] Comment on above: Performed By: #### L 4600.0100, L501.6710, L3890.6300, L505.7010, L100.0100, L101.9900, L3890.6200, L3890.6100, L3400.8000, L500.4050 #### [facility] [address] [place], [address] Basophils/100 WBC (Bld) 0.6 % Normal 0-1 [facility] Comment on above: Performed By: #### L 4600.0100, L501.6710, L3890.6300, L505.7010, L100.0100, L101.9900, L3890.6200, L3890.6100, L3400.8000, L500.4050 #### [facility] [address] [facility] [place], [address] Eosinophils/100 WBC (Bld) 1.7 % Normal 0-5 [facility] Comment on above: Performed By: #### L 4600.0100, L501.6710, L3890.6300, L505.7010, L100.0100, L101.9900, L3890.6200, L3890.6100, L3400.8000, L500.4050 #### [facility] [address] [facility] [place], [address] Erythrocyte distribution width (RBC) [Ratio] 11.9 % Normal 11.6-14.6 [facility] Comment on above: Performed By: #### L 4600.0100, L501.6710, L3890.6300, L505.7010, L100.0100, L101.9900, L3890.6200, L3890.6100, L3400.8000, L500.4050 #### [facility] [address] [place], [address] Hematocrit (Bld) [Volume fraction] 43.3 % Normal 40-54 [facility] Comment on above: Performed By: #### L 4600.0100, L501.6710, L3890.6300, L505.7010, L100.0100, L101.9900, L3890.6200, L3890.6100, L3400.8000, L500.4050 #### [facility] [address] [place], [address] Hemoglobin (Bld) [Mass/Vol] 14.7 g/dL Normal 13.0-16.5 [facility] Comment on above: Performed By: #### L 4600.0100, L501.6710, L3890.6300, L505.7010, L100.0100, L101.9900, L3890.6200, L3890.6100, L3400.8000, L500.4050 #### [facility] [address] [place], [address] IG% 0.500 Normal 0.0-0.9 [facility] Comment on above: Result Comment: IG% - Immature Granulocytes (promyelocytes, myelocytes and metamyelocytes) > 1% indicates that a LEFT SHIFT is Present. Performed By: #### L 4600.0100, L501.6710, L3890.6300, L505.7010, L100.0100, L101.9900, L3890.6200, L3890.6100, L3400.8000, L500.4050 #### [facility] [address] [place], [address] Lymphocytes/100 WBC (Bld) 24.7 % Normal 19-41 [facility] Comment on above: Performed By: #### L 4600.0100, L501.6710, L3890.6300, L505.7010, L100.0100, L101.9900, L3890.6200, L3890.6100, L3400.8000, L500.4050 #### [facility] [address] [place], [address] MCH (RBC) [Entitic mass] 28.5 pg Normal 27.0-32.0 [facility] Comment on above: Performed By: #### L 4600.0100, L501.6710, L3890.6300, L505.7010, L100.0100, L101.9900, L3890.6200, L3890.6100, L3400.8000, L500.4050 #### [facility] [address] [place], [address] MCHC (RBC) [Mass/Vol] 33.9 g/dL Normal 32-36 [facility] Comment on above: Performed By: #### L 4600.0100, L501.6710, L3890.6300, L505.7010, L100.0100, L101.9900, L3890.6200, L3890.6100, L3400.8000, L500.4050 #### [facility] [address] [place], [address] MCV (RBC) [Entitic vol] 84.1 fL Normal 80-94 [facility] Comment on above: Performed By: #### L 4600.0100, L501.6710, L3890.6300, L505.7010, L100.0100, L101.9900, L3890.6200, L3890.6100, L3400.8000, L500.4050 #### [facility] [address] [place], [address] Monocytes/100 WBC (Bld) 5.9 % Normal 0-10 [facility] Comment on above: Performed By: #### L 4600.0100, L501.6710, L3890.6300, L505.7010, L100.0100, L101.9900, L3890.6200, L3890.6100, L3400.8000, L500.4050 #### [facility] [address] [facility] [place], [address] (694 Neutrophils/100 WBC (Bld) 66.6 % Normal 47-70 [facility] Comment on above: Performed By: #### L 4600.0100, L501.6710, L3890.6300, L505.7010, L100.0100, L101.9900, L3890.6200, L3890.6100, L3400.8000, L500.4050 #### [facility] [address] [facility] [place], [address] (502) Nucleated RBC (Bld) [#/Vol] 0 10*3/uL Normal 0-5 [facility] Comment on above: Performed By: #### L 4600.0100, L501.6710, L3890.6300, L505.7010, L100.0100, L101.9900, L3890.6200, L3890.6100, L3400.8000, L500.4050 #### [facility] [address] [facility] [place], [address] (338 Platelet mean volume (Bld) [Entitic vol] 9.9 fL Normal 6.2-12.0 [facility] Comment on above: Performed By: #### L 4600.0100, L501.6710, L3890.6300, L505.7010, L100.0100, L101.9900, L3890.6200, L3890.6100, L3400.8000, L500.4050 #### [facility] [address] [facility] [place], [address] (413 Platelets (Bld) [#/Vol] 282 10*3/uL Normal 150-450 [facility] Comment on above: Performed By: #### L 4600.0100, L501.6710, L3890.6300, L505.7010, L100.0100, L101.9900, L3890.6200, L3890.6100, L3400.8000, L500.4050 #### [facility] [address] [place], [place], [id number] RBC (Bld) [#/Vol] 5.15 10*6/uL Normal 4.6-6.2 [facility] Comment on above: Performed By: #### L 4600.0100, L501.6710, L3890.6300, L505.7010, L100.0100, L101.9900, L3890.6200, L3890.6100, L3400.8000, L500.4050 #### [facility] [address] [place], [address] RDW SD 35.9 fl Normal 35.1-43.9 [facility] Comment on above: Performed By: #### L 4600.0100, L501.6710, L3890.6300, L505.7010, L100.0100, L101.9900, L3890.6200, L3890.6100, L3400.8000, L500.4050 #### [facility] [address] [place], [address] WBC (Bld) [#/Vol] 6.5 10*3/uL Normal 4.4-11.0 [facility] Comment on above: Performed By: #### L 4600.0100, L501.6710, L3890.6300, L505.7010, L100.0100, L101.9900, L3890.6200, L3890.6100, L3400.8000, L500.4050 #### [facility] [address] [place], [address] CRPon 09-09-2022 C-REACTIVE PROT 6.88 mg/L High 0.0-3.0 [facility] Comment on above: Result Comment: C-Re active Protein (CRP) provides useful information for the diagnosis, therapy and monitoring of inflammatory processes and associated diseases. For the evaluation of Relative Risk for Cardiovascular Disease, a High Sensitivity CRP (HSCRP) should be ordered. Performed By: #### L 4600.0100, L501.6710, L3890.6300, L505.7010, L100.0100, L101.9900, L3890.6200, L3890.6100, L3400.8000, L500.4050 #### [facility] [address] [facility] [place], [address] Chest PA and Lateralon 09-09 Chest PA and Lateral [facility] [address] [place] [address] Chest PA and Lateral MR#: [id number] Acct: [id number] Name: TATY LOYA Rep #: [id number] : 1985 M 36 From: Huma Lomeli PCP: Mala Wan NP-C Status: REG CLI Study: Chest PA and Lateral Date of Exam: 09/09/22 Exam# [id number] Ordering Dr: Sophie Herndon MD INDICATION: OTHER PSORIATIC ARTHROPATHY EXAMINATION/TECHNIQUE: X-RAY - XR Chest 2 Views COMPARISON: FINDINGS: LINES/DEVICES: None. LUNGS: No consolidation. No pneumothorax. MEDIASTINUM: Unremarkable. CARDIAC SILHOUETTE: Not enlarged. BONES AND SOFT TISSUES: No acute abnormalities. RAD/Chest PA and Lateral IMPRESSION: No evidence of active intrathoracic disease. Electronically Signed: Huma Lopez MD at 7:29 EDT , CC: SONU Wan; Dr. 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 [place], [address] Albumin/Globulin [Mass ratio] 0.9 {ratio} Normal 0.9-2.4 [facility] Comment on above: Performed By: #### L 4600.0100, L501.6710, L3890.6300, L505.7010, L100.0100, L101.9900, L3890.6200, L3890.6100, L3400.8000, L500.4050 #### [facility] [address] [place], [address] ALK P 78 U/L Normal 45-117 [facility] Comment on above: Performed By: #### L 4600.0100, L501.6710, L3890.6300, L505.7010, L100.0100, L101.9900, L3890.6200, L3890.6100, L3400.8000, L500.4050 #### [facility] [address] [place], [address] ALT [Catalytic activity/Vol] 33 U/L Normal 16-61 [facility] Comment on above: Performed By: #### L 4600.0100, L501.6710, L3890.6300, L505.7010, L100.0100, L101.9900, L3890.6200, L3890.6100, L3400.8000, L500.4050 #### [facility] [address] [place], [address] AST [Catalytic activity/Vol] 21 U/L Normal 15-37 [facility] Comment on above: Performed By: #### L 4600.0100, L501.6710, L3890.6300, L505.7010, L100.0100, L101.9900, L3890.6200, L3890.6100, L3400.8000, L500.4050 #### [facility] [address] [place], [address] Bilirubin [Mass/Vol] 0.70 mg/dL Normal 0.20-1.00 [facility] Comment on above: Result Comment: For patients on eltrombopag therapy, use of Dimension Brethren TBIL is not recommended. Performed By: #### L 4600.0100, L501.6710, L3890.6300, L505.7010, L100.0100, L101.9900, L3890.6200, L3890.6100, L3400.8000, L500.4050 #### [facility] [address] [place], [address] BUN/CRE 11.9 RATIO Normal 10-20 [facility] Comment on above: Performed By: #### L 4600.0100, L501.6710, L3890.6300, L505.7010, L100.0100, L101.9900, L3890.6200, L3890.6100, L3400.8000, L500.4050 #### [facility] [address] [place], [address] CA,Total 9.7 mg/dL Normal 8.5-10.1 [facility] Comment on above: Performed By: #### L 4600.0100, L501.6710, L3890.6300, L505.7010, L100.0100, L101.9900, L3890.6200, L3890.6100, L3400.8000, L500.4050 #### [facility] [address] [place], [address] Chloride [Moles/Vol] 106 mmol/L Normal 98-107 [facility] Comment on above: Performed By: #### L 4600.0100, L501.6710, L3890.6300, L505.7010, L100.0100, L101.9900, L3890.6200, L3890.6100, L3400.8000, L500.4050 #### [facility] [address] [place], [address] CO2 [Moles/Vol] 29.0 mmol/L Normal 21.0-32.0 [facility] Comment on above: Performed By: #### L 4600.0100, L501.6710, L3890.6300, L505.7010, L100.0100, L101.9900, L3890.6200, L3890.6100, L3400.8000, L500.4050 #### [facility] [address] [place], [place], [id number] (005) Creatinine [Mass/Vol] 0.76 mg/dL Normal 0.70-1.30 [facility] Comment on above: Result Comment: The validity of the calculated GFR GFRAA in patients over 70 years has not been determined. Clinical correlation is essential. Performed By: #### L 4600.0100, L501.6710, L3890.6300, L505.7010, L100.0100, L101.9900, L3890.6200, L3890.6100, L3400.8000, L500.4050 #### [facility] [address] [place], [address] EST GFR - AA 151 mL/min Normal >60 [facility] Comment on above: Result Comment: Afri can [place] GFR Calc Performed By: #### L 4600.0100, L501.6710, L3890.6300, L505.7010, L100.0100, L101.9900, L3890.6200, L3890.6100, L3400.8000, L500.4050 #### [facility] [address] [place], [place], [id number] (174) GAP 3 Low 5-15 [facility] Comment on above: Performed By: #### L 4600.0100, L501.6710, L3890.6300, L505.7010, L100.0100, L101.9900, L3890.6200, L3890.6100, L3400.8000, L500.4050 #### [facility] [address] [place], [address] GFR/1.73 sq M.predicted among non-blacks MDRD (S/P/Bld) [Vol rate/Area] 125 mL/min/{1.73_m2} Normal >60 [facility] Comment on above: Result Comment: Non- GFR Calc Performed By: #### L 4600.0100, L501.6710, L3890.6300, L505.7010, L100.0100, L101.9900, L3890.6200, L3890.6100, L3400.8000, L500.4050 #### [facility] [address] [place], [place], [id number] Globulin (S) [Mass/Vol] 4.2 g/dL Normal 2.2-4.2 [facility] Comment on above: Performed By: #### L 4600.0100, L501.6710, L3890.6300, L505.7010, L100.0100, L101.9900, L3890.6200, L3890.6100, L3400.8000, L500.4050 #### [facility] [address] [place], [address] Glucose [Mass/Vol] 89 mg/dL Normal 74-106 [facility] Comment on above: Performed By: #### L 4600.0100, L501.6710, L3890.6300, L505.7010, L100.0100, L101.9900, L3890.6200, L3890.6100, L3400.8000, L500.4050 #### [facility] [address] [place], [address] Potassium [Moles/Vol] 3.9 mmol/L Normal 3.5-5.1 [facility] Comment on above: Performed By: #### L 4600.0100, L501.6710, L3890.6300, L505.7010, L100.0100, L101.9900, L3890.6200, L3890.6100, L3400.8000, L500.4050 #### [facility] [address] [place], [address] Sodium [Moles/Vol] 138 mmol/L Normal 136-145 [facility] Comment on above: Performed By: #### L 4600.0100, L501.6710, L3890.6300, L505.7010, L100.0100, L101.9900, L3890.6200, L3890.6100, L3400.8000, L500.4050 #### [facility] [address] [place], [address] T PROT 8.1 g/dL Normal 6.4-8.2 [facility] Comment on above: Performed By: #### L 4600.0100, L501.6710, L3890.6300, L505.7010, L100.0100, L101.9900, L3890.6200, L3890.6100, L3400.8000, L500.4050 #### [facility] [address] [place], [place], [id number] Urea nitrogen [Mass/Vol] 9 mg/dL Normal 7-18 [facility] Comment on above: Performed By: #### L 4600.0100, L501.6710, L3890.6300, L505.7010, L100.0100, L101.9900, L3890.6200, L3890.6100, L3400.8000, L500.4050 #### [facility] [address] [place], [place], [id number] Determination of erythrocyte mean corpuscular volume (MCV)Ordered By: Dr. Herndon on 09-09-2022 MCV (RBC) [Entitic vol] 84.1 fL 80-94 [facility] Erythrocyte Sed Rateon 09-09 SED RATE 6 mm/hr Normal 0-20 [facility] Comment on above: Performed By: #### L 4600.0100, L501.6710, L3890.6300, L505.7010, L100.0100, L101.9900, L3890.6200, L3890.6100, L3400.8000, L500.4050 #### [facility] [address] [place], [place], [id number] Erythrocyte sedimentation ra teOrdered By: Dr. Herndon on 09-09-2022 ESR (Bld) [Velocity] 6 mm/h 0-20 [facility] Hematocrit Auto (Bld) [Volum e fraction]Ordered By: Dr. Herndon on 09-09-2022 Hematocrit (Bld) [Volume fraction] 43.3 % 40-54 [facility] Hepatitis B Surface Antibody on 09-09-2022 HEP B Surf Ab Non-Reactive Normal [facility] Comment on above: Result Comment: Non Reactive: Inconsistent with immunity less than <10 mIU/mL Reactive: Consistent with immunity greater than or equal to 10 mIU/mL Performed By: #### L 4600.0100, L501.6710, L3890.6300, L505.7010, L100.0100, L101.9900, L3890.6200, L3890.6100, L3400.8000, L500.4050 #### [facility] [address] [facility] [place], [address] Hepatitis B Surface Antigeno n 09-09-2022 HEP B Surf Ag Non-Reactive Normal Nonreactive [facility] Comment on above: Performed By: #### L 4600.0100, L501.6710, L3890.6300, L505.7010, L100.0100, L101.9900, L3890.6200, L3890.6100, L3400.8000, L500.4050 #### [facility] [address] [facility] [place], [address] Hepatitis C Antibodyon 09-09 Hepatitis C Ab Non-Reactive Normal Nonreactive [facility] Comment on above: Result Comment: Non Reactive: < 0.8 Equivocal: >/= 0.8 to < 1.0 Reactive: >/= 1.0 The CDC recommends that a reactive/equivocal HCV antibody result be followed up by the HCV Nucleic Acid Amplification test (901059) Performed By: #### L 4600.0100, L501.6710, L3890.6300, L505.7010, L100.0100, L101.9900, L3890.6200, L3890.6100, L3400.8000, L500.4050 #### [facility] [address] [facility] [place], [address] Laboratory - Chemistry and C hemistry - challengeOrdered By: Dr. Herndon on 09-09-2022 ALP [Catalytic activity/Vol] 78 U/L 45-117 [facility] ALT [Catalytic activity/Vol] 33 U/L 16-61 [facility] CO2 [Moles/Vol] 29.0 mmol/L 21.0-32.0 [facility] Globulin (S) [Mass/Vol] 4.2 g/dL 2.2-4.2 [facility] Urea nitrogen/Creatinine [Mass ratio] 11.9 mg/mg 10-20 [facility] - Hematology and Cell countsOrdered By: Dr. Herndon on 09-09-2022 Erythrocyte distribution width (RBC) [Entitic vol] 35.9 fL 35.1-43.9 [facility] Erythrocyte distribution width (RBC) [Ratio] 11.9 % 11.6-14.6 [facility] Immature granulocytes/100 WBC (Bld) 0.500 % 0.0-0.9 [facility] Comment on above: IG% - Immature Granu locytes (promyelocytes, myelocytes and metamyelocytes) > 1% indicates that a LEFT SHIFT is Present. MCH (RBC) [Entitic mass] 28.5 pg 27.0-32.0 [facility] Nucleated RBC/100 WBC (Bld) [Ratio] 0 % 0-5 [facility] MCHC Auto (RBC) [Mass/Vol]Or dered By: Dr. Herndon on 09-09-2022 MCHC (RBC) [Mass/Vol] 33.9 g/dL 32-36 [facility] No Panel InformationOrdered By: Dr. Herndon on 09-09-2022 Estimated GFR (MDRD) Amer 151 mL/min >60 [facility] Comment on above: GFR Calc Estimated GFR (MDRD) Non-Af Amer 125 mL/min >60 [facility] Comment on above: Non- GFR Calc Hepatitis B Surface Antigen Non-Reactive Nonreactive [facility] Hepatitis C Antibody Non-Reactive Nonreactive [facility] Comment on above: Non Reactive: < 0.8 Equivocal: >/= 0.8 to < 1.0 Reactive: >/= 1.0The CDC recommends that a reactive/equivocal HCV antibody result be followed up by the HCV Nucleic Acid Amplificationtest (965696) Pelvis 1 or 2 Viewson 2022 Pelvis 1 or 2 Views [facility] [address] [place] [address] Pelvis 1 or 2 Views MR#: [id number] Acct: [id number] Name: TATY LOYA GAVINO Rep #: [id number] : 1985 M 36 From: Huma Lomeli PCP: SONU Polanco Status: REG CLI Study: Pelvis 1 or 2 Views Date of Exam: 09/09/22 Exam# [id number] Ordering Dr: Sophie Herndon MD INDICATION: OTHER PSORIATIC ARTHROPATHY EXAMINATION/TECHNIQUE: X-RAY - XR Pelvis 1 or 2 Views COMPARISON: None. FINDINGS: No fracture demonstrated. The femoral heads are normal contour. No dislocation of the hips. The sacroiliac joints are symmetric and unremarkable. RAD/Pelvis 1 or 2 Views IMPRESSION: Unremarkable single view pelvis. Electronically Signed: Huma Lopez MD at 7:30 EDT , CC: SONU Wan; Dr. 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 Herndon on 09-09-2022 Platelets (Bld) [#/Vol] 282 10*3/uL 150-450 [facility] Qualitative QuantiFERON-TB g old in tube testOrdered By: Dr. Herndon on 09-09-2022 M. tuberculosis tuberculin stim IFN-g Ql (Bld) 0 IU/mL . [facility] Rheumatoid Factoron 09-10-19 23 RHEUMATOID FAC 18.0 IU/mL High <15 [facility] Comment on above: Performed By: #### L 4600.0100, L501.6710, L3890.6300, L505.7010, L100.0100, L101.9900, L3890.6200, L3890.6100, L3400.8000, L500.4050 #### [facility] [address] [place], [place], [id number] Serum cyclic citrullinated p eptide IgG antibody assay (units/volume)Ordered By: Dr. Herndon on 09-09-2022 Cyclic citrullinated peptide IgG Qn 10 units 0-19 [facility] Comment on above: Negative <20 Weak po sitive 20 - 39 Moderate positive 40 - 59 Strong positive >59Performed at: [address] [id number] Director: Yovany López PhD, Phone: [phone] Serum hepatitis B virus surf ben antibody IgG detectionOrdered By: Dr. Herndon on 09-09-2022 HBV surface IgG Ql (S) Non-Reactive [facility] Comment on above: Non Reactive: Incons istent with immunity less than <10 mIU/mL Reactive: Consistent with immunity greater than or equal to 10 mIU/mL Serum or plasma C reactive p rotein measurement (mass/volume)Ordered By: Dr. Herndon on 09-09-2022 CRP [Mass/Vol] 6.88 mg/L 0.0-3.0 [facility] Comment on above: C-Reactive Protein ( CRP) provides useful information for thediagnosis, therapy and monitoring of inflammatory processesand associated diseases. For the evaluation of Relative Riskfor Cardiovascular Disease, a High Sensitivity CRP (HSCRP)should be ordered. Serum or plasma albumin josiah urement (mass/volume)Ordered By: Dr. Herndon on 09-09-2022 Albumin [Mass/Vol] 3.9 g/dL 3.2-5.0 [facility] Serum or plasma albumin/glob ulin mass ratioOrdered By: Dr. Herndon on 09-09-2022 Albumin/Globulin [Mass ratio] 0.9 {ratio} 0.9-2.4 [facility] Serum or plasma calcium josiah urement (mass/volume)Ordered By: Dr. Herndon on 09-09-2022 Calcium [Mass/Vol] 9.7 mg/dL 8.5-10.1 [facility] Serum or plasma creatinine m easurement (mass/volume)Ordered By: Dr. Herndon on 09-09-2022 Creatinine [Mass/Vol] 0.76 mg/dL 0.70-1.30 [facility] Comment on above: The validity of the calculated GFR & GFRAA in patients over 70 years has not been determined. Clinical correlation is essential. Serum or plasma urea nitroge n measurement (mass/volume)Ordered By: Dr. Herndon on 09-09-2022 Urea nitrogen [Mass/Vol] 9 mg/dL 7-18 [facility] Serum rheumatoid factor dete ctionOrdered By: Dr. Herndon on 09-09-2022 Rheumatoid factor Ql (S) 18.0 IU/mL <15 [facility] Thin prep Papanicolaou smear with manual screeningOrdered By: Dr. Herndon on 09-09-2022 Thin prep Papanicolaou smear with manual screening 21 U/L 15-37 [facility] Thin prep Papanicolaou smear with manual screening 3 5-15 [facility] Thin prep Papanicolaou smear with manual screening Comment . [facility] Comment on above: QuantiFERON-TB Gold Plus is a qualitative indirect test forM tuberculosis infection (including disease) and isintended for use in conjunction with risk assessment,radiography, and other medical and diagnostic evaluations.The QuantiFERON-TB Gold Plus result is determined bysubtracting the Nil value from either TB antigen (Ag)value. The Mitogen tube serves as a control for the test. Thin prep Papanicolaou smear with manual screening 0 IU/mL . [facility] Thin prep Papanicolaou smear with manual screening > 10.00 IU/mL . [facility] Thin prep Papanicolaou smear with manual screening Negative Negative [facility] Comment on above: No response to M tub erculosis antigens detected.Infection with M tuberculosis is unlikely, but high riskindividuals should be considered for additional testing(ATS/IDSA/CDC Clinical Practice Guidelines, 2017). Thereference range is an Antigen minus Nil result of <0.35IU/mL.The specimen received for QuantiFERON testing was incubatedby the ordering institution. Specific procedures outlinedin our Directory of Services and in the package insert forthe QuantiFERON Gold (In Tube) test must be followed toenable for proper stimulation of cells for the productionof interferon gamma. Chemiluminescence immunoassaymethodology [place] 02-27-20[facility] TATY LOYA ([id number]) 1985 M Date Time Provider Department 02/27/21 11:40 AM AN CAGE During your visit today, we recorded the following information about you: Temperature Pulse Respiration Blood pressure 97.9 degrees 85/minute 16/minute 136/90 Weight Height 102.1 kg 1.803 m An Cage APRN.CNP 02/27/2021 12:41 PM Signed February 27, 2021 Subjective Chief Complaint: Cough (Sx started x 1 week with sore throat,congestion,cough and chest tightness that is getting worse.) HPI: Taty Loya is a 35 year old male who presents today for 1 week history of sore throat, nasal congestion, minor production to his cough, chest burning. Patient states he gets bronchitis twice per year and this is similar. Denies any fever, chills, body aches, chest pain, shortness of breath. States his sore throat is weaning. Hx of Asthma. Eating and drinking as norm. No Covid vaccination. States people at [employer] and at work have colds and allergies currently but no exposure to Covid that he is aware of. Has utilized cool mist humidifier and propped himself up with pillows at night. PAST MEDICAL HISTORY Diagnosis Date - Arthritis - Psoriasis No past surgical history on file. FAMILY HISTORY Problem Relation Age of Onset - No Known Problems Mother - Diabetes Father - Heart disease Father Social History Tobacco Use - Smoking status: Never Smoker - Smokeless tobacco: Never Used Vaping Use - Vaping Use: Never used Substance Use Topics - Alcohol use: Never - Drug use: Not on file ALLERGIES No Known Allergies There is no immunization history on file for this patient. Current Medications: TALTZ AUTOINJECTOR 80 mg/mL pen ALBUTEROL INHALATION Inhale as instructed as needed. Review of Systems Constitutional: Negative for chills, fever and malaise/fatigue. HENT: Positive for congestion and sore throat. Negative for ear pain. Eyes: Negative. Respiratory: Positive for cough. Negative for hemoptysis, sputum production, shortness of breath and wheezing. Cardiovascular: Negative. Gastrointestinal: Negative. Genitourinary: Negative. Musculoskeletal: Negative. Skin: Negative. Neurological: Negative. Objective BP 136/90 Pulse 85 Temp (Src) 97.9 (Oral) Resp 16 Ht 5' 11 (1.80m) Wt 225 lb (102.1kg) SpO2 97% BMI 31.39 kg/(m2). Physical Exam Vitals reviewed. Constitutional: General: He is not in acute distress. Appearance: Normal appearance. He is not ill-appearing, toxic-appearing or diaphoretic. HENT: Head: Normocephalic and atraumatic. Right Ear: Tympanic membrane, ear canal and external ear normal. There is no impacted cerumen. Left Ear: Tympanic membrane, ear canal and external ear normal. There is no impacted cerumen. Nose: Nose normal. Mouth/Throat: Mouth: Mucous membranes are moist. Pharynx: Oropharynx is clear. No oropharyngeal exudate or posterior oropharyngeal erythema. Eyes: General: Right eye: No discharge. Left eye: No discharge. Extraocular Movements: Extraocular movements intact. Conjunctiva/sclera: Conjunctivae normal. Pupils: Pupils are equal, round, and reactive to light. Cardiovascular: Rate and Rhythm: Normal rate and regular rhythm. Heart sounds: Normal heart sounds. No murmur heard. No friction rub. No gallop. Pulmonary: Effort: Pulmonary effort is normal. No respiratory distress. Breath sounds: Normal breath sounds. No stridor. No wheezing, rhonchi or rales. Chest: Chest wall: No tenderness. Musculoskeletal: Cervical back: Neck supple. Skin: General: Skin is warm and dry. Capillary Refill: Capillary refill takes less than 2 seconds. Neurological: Mental Status: He is alert and oriented to person, place, and time. Psychiatric: Mood and Affect: Mood normal. Behavior: Behavior normal. Thought Content: Thought content normal. Judgment: Judgment normal. Patient declined Covid testing ASSESSMENT/PLAN: 1. Bronchitis - ICD9: 490, ICD10: J40 Drink plenty of non-caffeinated fluids! For nasal congestion/ear fullness: Flonase twice a day until symptoms are gone. Use a nasal saline rinse (netti pot/squeeze bottle) couple times a day. For sore throat/cough: gargle with salt water, hot tea and honey, cool mist vaporizer, and cough drops Prop yourself up with additional pillows at night Vicks Vapor rub to chest at night Educational pamphlet regarding Bronchitis given - PREDNISONE 20 MG TABLET ALLAN Guadarrama APRN.CNP 02/27/2021 12:34 PM Signed Drink plenty of non-caffeinated fluids! For nasal congestion/ear fullness: Flonase twice a day until symptoms are gone. Use a nasal saline rinse (netti pot/squeeze bottle) couple times a day. For sore throat/cough: gargle with salt water, hot tea and honey, cool mist vaporiz (more content not included)... Normal [facility] STRP SCNon 07-31-2017 STRP SCN Performed at: [facility] [address] [place] [id number] STREP SCREEN NEGATIVE - CULTURE TO FOLLOW [facility] THT NO GROUP A BETA STRE P ISOLATED [facility] Comment on above: Performed By: #### M 130.0700 ####[facility] [id number] [place] [address] Encounters Encounter Date Encounter Type Care Provider Facility Start: 03-09-2024 End: 03-09-2024 ambulatory Theresa Fermin PT Work Phone: [facility] Comment on above: Acute bilateral low back pain without sciatica (Primary Dx) Start: 03-07-2024 End: 03-07-2024 ambulatory Theresa Fermin PT Work Phone: [facility] Comment on above: Acute bilateral low back pain without sciatica (Primary Dx) Start: 03-01-2024 End: 03-01-2024 ambulatory 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 PTA [facility] Comment on above: Acute bilateral low back pain without sciatica (Primary Dx); Acute bilateral low back pain, unspecified whether sciatica present Start: 02-28-2024 End: 02-28-2024 ambulatory Theresa Fermin PT Work Phone: [facility] Comment on above: Acute bilateral low back pain without sciatica (Primary Dx) Start: 02-25-2024 End: 02-25-2024 ambulatory Theresa Jeny PT Work Phone: [facility] Comment on above: Acute bilateral low back pain without sciatica (Primary Dx) Start: 02-21-2024 End: 02-21-2024 ambulatory 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 [facility] Comment on above: Acute bilateral low back pain without sciatica (Primary Dx); Acute bilateral low back pain, unspecified whether sciatica present Start: 02-14-2024 End: 02-14-2024 ambulatory 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 [facility] Comment on above: Acute bilateral low back pain without sciatica (Primary Dx); Acute bilateral low back pain, unspecified whether sciatica present Start: 02-09-2024 End: 02-09-2024 ambulatory Theresa Jeny PT Work Phone: [facility] Comment on above: Acute bilateral low back pain without sciatica (Primary Dx) Start: 02-07-2024 End: 02-07-2024 ambulatory Theresa Jeny PT Work Phone: [facility] Comment on above: Acute bilateral low back pain without sciatica (Primary Dx) Start: 02-04-2024 End: 02-04-2024 ambulatory Theresa Jeny PT Work Phone: [facility] Comment on above: Acute bilateral low back pain without sciatica (Primary Dx) Start: 01-31-2024 End: 01-31-2024 ambulatory Theresa Jeny PT Work Phone: [facility] Comment on above: Acute bilateral low back pain without sciatica (Primary Dx) Start: 01-27-2024 End: 01-27-2024 ambulatory Theresa Jeny PT Work Phone: [facility] Comment on above: Acute bilateral low back pain without sciatica (Primary Dx) Start: 01-25-2024 End: 01-25-2024 ambulatory Theresa Jeny PT Work Phone: [facility] Comment on above: Acute bilateral low back pain, unspecified whether sciatica present (Primary Dx) Start: 04-27-2023 End: 04-27-2023 ambulatory SOPHIE MD [facility] Start: 01-23-2023 End: 01-23-2023 ambulatory [facility] Start: 09-09-2022 End: 09-09-2022 ambulatory [facility] Work Phone: Start: 09-09-2022 End: 09-09-2022 Patient encounter procedure [facility] Start: 04-02-2022 End: 04-03-2022 ambulatory [facility] Start: 04-02-2022 End: 04-02-2022 Subsequent hospital visit by physician Mala Wan APRN-[employer] ATTENDANT Work Phone: [facility] [place] Comment on above: 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) Start: 07-31-2017 Patient encounter [facility] Start: 06-19-2017 Patient encounter [facility]DEIDRE DAVIS [facility] Start: 03-30-2017 Patient encounter [facility]THERESA Braswell Facility:[facility] Procedures Date Procedure Procedure Detail Performing Clinician Start: 09-09-2022 Pelvis X-ray Plan of Treatment Date Care Activity Detail Author Start: 03-09-2024 End: 03-09-2024 ambulatory 03/09/2024 2:45 PM EDT OT/PT/Speech Visit [facility] [address] [place] [id number] Theresa Fermin, PT [address] [place] [address] lower back [facility] Comment on above: lower back Start: 03-07-2024 End: 03-07-2024 ambulatory 03/07/2024 7:00 AM EDT OT/PT/Speech Visit [facility] [address] [place] [address] Theresa Fermin, PT [address] [place] [address] lower back [facility] Comment on above: lower back Start: 03-01-2024 End: 03-01-2024 OT/PT/Speech Visit 03/01/2024 2:45 PM EDT OT/PT/Speech Visit [facility] [address] [place] [id number] 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, 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 M51.17 Intvrt disc disorders w radiculopathy, lumbosacral region [facility] Comment on above: M51.17 Intvrt disc d isorders w radiculopathy, lumbosacral region Start: 02-28-2024 End: 02-28-2024 OT/PT/Speech Visit 02/28/2024 2:00 PM EDT OT/PT/Speech Visit [facility] [address] [place] [id number] Theresa Fermin, PT [address] [place] [address] M51.17 Intvrt disc disorders w radiculopathy, lumbosacral region [facility] Comment on above: M51.17 Intvrt disc d isorders w radiculopathy, lumbosacral region Start: 02-25-2024 End: 02-25-2024 OT/PT/Speech Visit 02/25/2024 1:15 PM EDT OT/PT/Speech Visit [facility] [address] [place] [id number] Theresa Fermin, PT [address] [place] [address] M51.17 Intvrt disc disorders w radiculopathy, lumbosacral region [facility] Comment on above: M51.17 Intvrt disc d isorders w radiculopathy, lumbosacral region Start: 02-21-2024 End: 02-21-2024 OT/PT/Speech Visit 02/21/2024 2:45 PM EDT OT/PT/Speech Visit [facility] [address] [place] [id number] 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, 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 M51.17 Intvrt disc disorders w radiculopathy, lumbosacral region [facility] Comment on above: M51.17 Intvrt disc d isorders w radiculopathy, lumbosacral region Start: 02-16-2024 End: 02-16-2024 OT/PT/Speech Visit 02/16/2024 2:00 PM EDT OT/PT/Speech Visit [facility] [address] [place] [id number] Theresa Fermin, PT [address] [place] [address] M51.17 Intvrt disc disorders w radiculopathy, lumbosacral region [facility] Comment on above: M51.17 Intvrt disc d isorders w radiculopathy, lumbosacral region Start: 02-14-2024 End: 02-14-2024 OT/PT/Speech Visit 02/14/2024 2:00 PM EDT OT/PT/Speech Visit [facility] [address] [place] [phone] Theresa Fermin, PT [address] [place] [id number] M51.17 Intvrt disc disorders w radiculopathy, lumbosacral region [facility] Comment on above: M51.17 Intvrt disc d isorders w radiculopathy, lumbosacral region Start: 02-09-2024 End: 02-09-2024 OT/PT/Speech Visit 02/09/2024 7:00 AM EDT OT/PT/Speech Visit [facility] [address] [place] [phone] Theresa Fermin, PT [address] [place] [address] M51.17 Intvrt disc disorders w radiculopathy, lumbosacral region [facility] Comment on above: M51.17 Intvrt disc d isorders w radiculopathy, lumbosacral region Start: 02-07-2024 End: 02-07-2024 OT/PT/Speech Visit 02/07/2024 2:00 PM EDT OT/PT/Speech Visit [facility] [address] [place] [id number] Theresa Fermin, PT [address] [place] [address] M51.17 Intvrt disc disorders w radiculopathy, lumbosacral region [facility] Comment on above: M51.17 Intvrt disc d isorders w radiculopathy, lumbosacral region Start: 02-04-2024 End: 02-04-2024 OT/PT/Speech Visit 02/04/2024 2:00 PM EDT OT/PT/Speech Visit [facility] [address] [place] [address] [id number] Theresa Fermin, PT [address] [place] [address] M51.17 Intvrt disc disorders w radiculopathy, lumbosacral region [facility] Comment on above: M51.17 Intvrt disc d isorders w radiculopathy, lumbosacral region Start: 01-31-2024 End: 01-31-2024 OT/PT/Speech Visit 01/31/2024 2:00 PM EDT OT/PT/Speech Visit [facility] [address] [place] [id number] Theresa Fermin, PT [address] [place] [address] M51.17 Intvrt disc disorders w radiculopathy, lumbosacral region [facility] Comment on above: M51.17 Intvrt disc d isorders w radiculopathy, lumbosacral region Start: 01-27-2024 End: 01-27-2024 OT/PT/Speech Visit 01/27/2024 2:45 PM EDT OT/PT/Speech Visit [facility] [address] [place] [id number] Theresa Fermin, PT [address] [place] [address] J71.17 Intvrt disc disorders w radiculopathy, lumbosacral region [facility] Comment on above: M51.17 Intvrt disc d isorders w radiculopathy, lumbosacral region Start: 01-16-2024 Covid-19 Vaccine ( season) Covid-19 Vaccine ( season) [facility] Start: 01-16-2024 Covid-19 Vaccine ( season) Covid-19 Vaccine () [facility] Start: 01-16-2024 Influenza vaccination Influenza Vacc ine (#1) [facility] Start: 09-13-2022 Lipid panel Lipid Screening [facility] Start: 01-15-2022 FLU (#1) FLU (#1) [facility] Start: 09-13-2006 Hepatitis B Vaccine (1 of 3 - 19+ 3-dose series) Hepatitis B Vaccine (1 of 3 - 19+ 3-dose series) [facility] Start: 09-13-2006 Urine microalbumin profile DTaP,Tdap,Td Vaccine (1 - Tdap) [facility] Start: 09-13-2005 Anxiety Screening Anxiety Screening [facility] Start: 09-13-2005 Depression Screening Depression Scre ening [facility] Start: 09-13-2005 Hepatitis C screening Hepatitis C Sc reening [facility] Start: 09-13-2005 HIV screening HIV Screening [facility] Start: 2003 MenB (1 of 2 - MenB 2-Dose Series) MenB (1 of 2 - MenB 2-Dose Series) [facility] Start: 09-13-1994 Tetanus Diphtheria a nd Pertussis Vaccines (1 - Tdap) Tetanus Diphtheria and Pertussis Vaccines (1 - Tdap) [facility] Start: 09-13-1988 MMR (1 of 1 - Standa rd series) MMR (1 of 1 - Standard series) [facility] Start: 09-13-1988 Varicella (1 of 2 - 2-dose childhood series) Varicella (1 of 2 - 2-dose childhood series) [facility] Start: 03-15-1988 COVID-19 (#1) COVID-19 (#1) [facility] Start: 1987 Hepatitis B (1 of 3 - 3-dose series) Hepatitis B (1 of 3 - 3-dose series) [facility] Payers Date Payer Category Payer Self-pay [id number] 2020 Unknown [id number] 2018 Unknown [id number] 1987 Unknown [id number] 1987 Unknown [id number] 1987 Unknown [id number] Unknown [id number] Social History Date Type Detail [facility] Start: 1987 Sex Assigned At Not on file A [facility] Start: 03-23-2022 End: 04-02-2022 Exposure to SARS-CoV-2 (event) Not sure [facility] Start: 1987 Sex Assigned At [facility] Start: 02-27-2021 [facility] Start: 02-27-2021 Tobacco use and exposure Smokeless tobacco non-user [facility] Start: 02-27-2021 Alcoholic beverage intake Lifetime non-drinker (finding) [facility] Start: 02-27-2021 End: 01-27-2024 History of Social function [facility] Start: 02-27-2021 End: 01-27-2024 Tobacco use panel [facility] National Score (1-100), lower number is lower risk Not on file [facility] Clinical Notes 02-27-2021 to 05-08-2024 Theresa Fermin, PT - 03/09/2024 3:51 PM Theresa Vogel PT - 03/09/2024 3:48 PM Theresa Vogel PT - 03/07/2024 7:05 AM Maris ShakiraMITCHEL krishna - 03/01/2024 2:47 PM EDT Note Date & Type Note Facility 05-08-2024 Note HNO ID: [id number] Author: THERESA FERMIN PT Service: ? Author Type: Physical Therapist Type: Progress Notes Filed: 05/08/2024 11:19 Note Text: 05/08/2024 [facility] PHYSICAL THERAPY DISCONTINUANCE OF CARE Plan of Care Period: Start of Care Date: 01/25/24 Last Visit Date: 03/09/2024 Therapy Program: The following is a summary of the interventions provided for this episode of care; Therapeutic exercise, Self-prison management, and Modalities: Mechanical Traction Assessment: The following is the goal status: Goals for Episode of Care: established 01/25/24; updated 02/25/2024 Independent in home exercises.-MET Patient will decrease pain rating by 2 points to meet minimal clinical important difference for numeric pain rating scale.--MET Restore pain-free lumbar ROM to WNL to allow for improved body mechanics with work tasks.-PROGRESSING Stand / Walk 30 minutes without pain/symptoms.-MET Patient will increasing lifting ability to be able to perform work-related tasks. -NEW Patient Goals: Reduce pain, increase mobility Based on the most recent progress report, patient was progressing as expected toward functional goals based on home exercise program compliance, pain levels, and documented subjective information on progress. Reason for Discontinuation of Care: Patient has not returned to therapy or scheduled additional follow-up appointments. Theresa Fermin PT, DPT [facility] 03-09-2024 Note HNO ID: [id number] Author: THERESA FERMIN PT Service: ? Author Type: Physical Therapist Type: Progress Notes Filed: 03/09/2024 15:53 Note Text: Episode Visit Count: 13 Therapist That Will Accept/Oversee The Plan Of Care: Theresa Jeny, PT, DPT Start of Care Date: 01/25/24 Onset Date: 11/29/23 Patient Identified by Name and Date of : Yes REHABILITATION AND SPORTS THERAPY PHYSICAL THERAPY TREATMENT NOTE ASSESSMENT: Taty Loya tolerated the session with expected muscle soreness and no issues. He demonstrated improvements in tolerance to strengthening interventions for global strength. Patient was able to perform core, back, LE, and UE with appropriate modifications. The patient will continue to benefit from ongoing skilled physical therapy to progress toward set goals. PLAN FOR NEXT VISIT: hold chart for 30 days then D/C SUBJECTIVE: Patient notes that he has been feeling pretty good and looking into home gym equipment to continue his HEP. Pain: Pain Pain Level: 0 Pain Location: Back Post Treatment Pain Post Treatment Pain Level: Better OBJECTIVE MEASURES WITH LEVEL OF FUNCTION: No objective measures recorded this date. TREATMENT: Therapeutic Exercise: 1: LFUC: seat @ 10, 5' subjective information gathered. L3 2: KB 90/90 carries 10# KB 3: KB half kneel OH presses 1-# KB, kneeling on airec 4: MANGO rows 10# KB 5: Plank with KB pull throughs, 10# 6: Spanish twists with 10# KB x30 7: GOblet squat with heels elebated, 10# KB 8: Lateral band walks BTB 9: FWD monster walks BTB 10: SL RDLs, 10# 19: Access Code: [email or web address] URL: [email or web address] Date: 03/09/2024 Prepared by: Theresa Fermin Exercises - Seated Hamstring Stretch - 1 x daily - 7 x weekly - 3 sets - 10 reps - Roller Massage Elongated Hamstring Release - 1 x daily - 7 x weekly - 3 sets - 10 reps - Supine Hamstring Stretch with Strap - 1 x daily - 7 x weekly - 3 sets - 10 reps - Supine Single Knee to Chest Stretch - 1 x daily - 7 x weekly - 3 sets - 10 reps - Prone Press Up - 1 x daily - 7 x weekly - 3 sets - 10 reps - Supine Posterior Pelvic Tilt - 1 x daily - 7 x weekly - 3 sets - 10 reps - Goblet Squat with Kettlebell - 1 x daily - 7 x weekly - 3 sets - 10 reps - Single-Leg [place]er Deadlift With Kettlebell - 1 x daily - 7 x weekly - 3 sets - 10 reps - Kettlebell Bottom Up Carry - 1 x daily - 7 x weekly - 3 sets - 10 reps - Half-Kneeling Bottoms Up Kettlebell Overhead Press - 1 x daily - 7 x weekly - 3 sets - 10 reps - Kettlebell Drag - 1 x daily - 7 x weekly - 3 sets - 10 reps - Spanish Twists Feet off Ground with Ball - 1 x daily - 7 x weekly - 3 sets - 10 reps - Bent Over Single Arm Shoulder Row with Dumbbell - 1 x daily - 7 x weekly - 3 sets - 10 reps - Side Stepping with Resistance at Ankles - 1 x daily - 7 x weekly - 3 sets - 10 reps - Forward Monster Walks - 1 x daily - 7 x weekly - 3 sets - 10 reps 20: Reviewed HEP and goals, discussed home management and reasons to return to therapy Skilled Intervention: Patient was educated in proper exercise technique and purpose for exercises. Reviewed and educated patient on additions/changes for home exercise program. Skilled judgment was used in selection of appropriate interventions. Patient education as noted. Billing Therapeutic Exercise Treatment Minutes: 38 Skilled Treatment Time Minutes (timed and untimed codes): 38 Total Session Time (minutes): 38 Session Start Time : 1452 Session Stop Time : 1530 Theresa Fermin PT, DPT [facility] 03-09-2024 History of Presen t illness Narrative Episode Visit Count: 13 Therapist That Will Accept/Oversee The Plan Of Care: Theresa Fermin PT, DPT Start of Care Date: 01/25/24 Onset Date: 11/29/23 Patient Identified by Name and Date of : Yes REHABILITATION AND SPORTS THERAPY PHYSICAL THERAPY TREATMENT NOTE ASSESSMENT: Taty Loya tolerated the session with expected muscle soreness and no issues. He demonstrated improvements in tolerance to strengthening interventions for global strength. Patient was able to perform core, back, LE, and UE with appropriate modifications. The patient will continue to benefit from ongoing skilled physical therapy to progress toward set goals. PLAN FOR NEXT VISIT: hold chart for 30 days then D/C SUBJECTIVE: Patient notes that he has been feeling pretty good and looking into home gym equipment to continue his HEP. Pain: Pain Pain Level: 0 Pain Location: Back Post Treatment Pain Post Treatment Pain Level: Better OBJECTIVE MEASURES WITH LEVEL OF FUNCTION: No objective measures recorded this date. TREATMENT: Therapeutic Exercise: 1: LFUC: seat @ 10, 5' subjective information gathered. L3 2: KB 90/90 carries 10# KB 3: KB half kneel OH presses 1-# KB, kneeling on airec 4: MANGO rows 10# KB 5: Plank with KB pull throughs, 10# 6: Spanish twists with 10# KB x30 7: GOblet squat with heels elebated, 10# KB 8: Lateral band walks BTB 9: FWD monster walks BTB 10: SL RDLs, 10# 19: Access Code: [email or web address] URL: [email or web address] Date: 03/09/2024 Prepared by: Theresa Fermin Exercises - Seated Hamstring Stretch - 1 x daily - 7 x weekly - 3 sets - 10 reps - Roller Massage Elongated Hamstring Release - 1 x daily - 7 x weekly - 3 sets - 10 reps - Supine Hamstring Stretch with Strap - 1 x daily - 7 x weekly - 3 sets - 10 reps - Supine Single Knee to Chest Stretch - 1 x daily - 7 x weekly - 3 sets - 10 reps - Prone Press Up - 1 x daily - 7 x weekly - 3 sets - 10 reps - Supine Posterior Pelvic Tilt - 1 x daily - 7 x weekly - 3 sets - 10 reps - Goblet Squat with Kettlebell - 1 x daily - 7 x weekly - 3 sets - 10 reps - Single-Leg [place]er Deadlift With Kettlebell - 1 x daily - 7 x weekly - 3 sets - 10 reps - Kettlebell Bottom Up Carry - 1 x daily - 7 x weekly - 3 sets - 10 reps - Half-Kneeling Bottoms Up Kettlebell Overhead Press - 1 x daily - 7 x weekly - 3 sets - 10 reps - Kettlebell Drag - 1 x daily - 7 x weekly - 3 sets - 10 reps - Spanish Twists Feet off Ground with Ball - 1 x daily - 7 x weekly - 3 sets - 10 reps - Bent Over Single Arm Shoulder Row with Dumbbell - 1 x daily - 7 x weekly - 3 sets - 10 reps - Side Stepping with Resistance at Ankles - 1 x daily - 7 x weekly - 3 sets - 10 reps - Forward Monster Walks - 1 x daily - 7 x weekly - 3 sets - 10 reps 20: Reviewed HEP and goals, discussed home management and reasons to return to therapy Skilled Intervention: Patient was educated in proper exercise technique and purpose for exercises. Reviewed and educated patient on additions/changes for home exercise program. Skilled judgment was used in selection of appropriate interventions. Patient education as noted. Billing Therapeutic Exercise Treatment Minutes: 38 Skilled Treatment Time Minutes (timed and untimed codes): 38 Total Session Time (minutes): 38 Session Start Time : 1452 Session Stop Time : 1530 Theresa Fermin PT, DPT Program_ID:[id number] Access Code: [email or web address] URL: [email or web address] Date: 03-09-2024 Prepared By: Theresa Fermin Program Notes Exercises - Seated Hamstring Stretch - 1 x daily - 7 x weekly - 3 sets - 10 reps - Roller Massage Elongated Hamstring Release - 1 x daily - 7 x weekly - 3 sets - 10 reps - Supine Hamstring Stretch with Strap - 1 x daily - 7 x weekly - 3 sets - 10 reps - Supine Single Knee to Chest Stretch - 1 x daily - 7 x weekly - 3 sets - 10 reps - Prone Press Up - 1 x daily - 7 x weekly - 3 sets - 10 reps - Supine Posterior Pelvic Tilt - 1 x daily - 7 x weekly - 3 sets - 10 reps - Goblet Squat with Kettlebell - 1 x daily - 7 x weekly - 3 sets - 10 reps - Single-Leg [place]er Deadlift With Kettlebell - 1 x daily - 7 x weekly - 3 sets - 10 reps - Kettlebell Bottom Up Carry - 1 x daily - 7 x weekly - 3 sets - 10 reps - Half-Kneeling Bottoms Up Kettlebell Overhead Press - 1 x daily - 7 x weekly - 3 sets - 10 reps - Kettlebell Drag - 1 x daily - 7 x weekly - 3 sets - 10 reps - Spanish Twists Feet off Ground with Ball - 1 x daily - 7 x weekly - 3 sets - 10 reps - Bent Over Single Arm Shoulder Row with Dumbbell - 1 x daily - 7 x weekly - 3 sets - 10 reps - Side Stepping with Resistance at Ankles - 1 x daily - 7 x weekly - 3 sets - 10 reps - Forward Monster Walks - 1 x daily - 7 x weekly - 3 sets - 10 reps documented in this encounter [facility] 03-07-2024 Note HNO ID: [id number] Author: THERESA FERMIN PT Service: ? Author Type: Physical Therapist Type: Progress Notes Filed: 03/07/2024 07:44 Note Text: Episode Visit Count: 12 Therapist That Will Accept/Oversee The Plan Of Care: Theresa Fermin PT, DPT Start of Care Date: 01/25/24 Onset Date: 11/29/23 Patient Identified by Name and Date of : Yes REHABILITATION AND SPORTS THERAPY PHYSICAL THERAPY TREATMENT NOTE ASSESSMENT: Taty Loya tolerated the session with decreased symptoms, expected muscle soreness, and no issues. He demonstrated improvements in lumbar mobility and rotational movements. The patient will continue to benefit from ongoing skilled physical therapy to progress toward set goals. PLAN FOR NEXT VISIT: focus on strengthening core and back SUBJECTIVE: Patient notes some mild soreness this morning and feels likes his back fatigues quickly. Pain: Pain Pain Level: 1 Pain Location: Back Description: Sore Post Treatment Pain Post Treatment Pain Level: Better OBJECTIVE MEASURES WITH LEVEL OF FUNCTION: No objective measures recorded this date. TREATMENT: Therapeutic Exercise: 1: LFUC: seat @ 10, 5' subjective information gathered. L3 2: TRX inverted rows 3x10 3: TRX deep squats x10 normal, 2x10 on BOSU 4: SL RDL 2x10 20# DB 5: CCn side pulls 2 plates 2x10 ea 6: CBE: 70# 3x10x3 ct back 7: Standing IT band stretch @ wall 5x10 ea, lumbar flexion 8: SL cross body OH lifts with 11# MB 2x10 ea side Skilled Intervention: Patient was educated in proper exercise technique and purpose for exercises. Reviewed and educated patient on additions/changes for home exercise program. Skilled judgment was used in selection of appropriate interventions. Billing Therapeutic Exercise Treatment Minutes: 39 Skilled Treatment Time Minutes (timed and untimed codes): 39 Total Session Time (minutes): 39 Session Start Time : 701 Session Stop Time : 740 Theresa Fermin PT, DPT [facility] 03-07-2024 History of Presen t illness Narrative Episode Visit Count: 12 Therapist That Will Accept/Oversee The Plan Of Care: Theresa Fermin PT, DPT Start of Care Date: 01/25/24 Onset Date: 11/29/23 Patient Identified by Name and Date of : Yes REHABILITATION AND SPORTS THERAPY PHYSICAL THERAPY TREATMENT NOTE ASSESSMENT: Taty Loya tolerated the session with decreased symptoms, expected muscle soreness, and no issues. He demonstrated improvements in lumbar mobility and rotational movements. The patient will continue to benefit from ongoing skilled physical therapy to progress toward set goals. PLAN FOR NEXT VISIT: focus on strengthening core and back SUBJECTIVE: Patient notes some mild soreness this morning and feels likes his back fatigues quickly. Pain: Pain Pain Level: 1 Pain Location: Back Description: Sore Post Treatment Pain Post Treatment Pain Level: Better OBJECTIVE MEASURES WITH LEVEL OF FUNCTION: No objective measures recorded this date. TREATMENT: Therapeutic Exercise: 1: LFUC: seat @ 10, 5' subjective information gathered. L3 2: TRX inverted rows 3x10 3: TRX deep squats x10 normal, 2x10 on BOSU 4: SL RDL 2x10 20# DB 5: CCn side pulls 2 plates 2x10 ea 6: CBE: 70# 3x10x3 ct back 7: Standing IT band stretch @ wall 5x10 ea, lumbar flexion 8: SL cross body OH lifts with 11# MB 2x10 ea side Skilled Intervention: Patient was educated in proper exercise technique and purpose for exercises. Reviewed and educated patient on additions/changes for home exercise program. Skilled judgment was used in selection of appropriate interventions. Billing Therapeutic Exercise Treatment Minutes: 39 Skilled Treatment Time Minutes (timed and untimed codes): 39 Total Session Time (minutes): 39 Session Start Time : 701 Session Stop Time : 740 Theresa Fermin PT, DPT documented in this encounter [facility] 03-01-2024 Note HNO ID: [id number] Author: SHAKIRA HEATON PTA Service: ? Author Type: [employer] Type: Progress Notes Filed: 03/01/2024 15:41 Note Text: Episode Visit Count: 11 Therapist That Will Accept/Oversee The Plan Of Care: Theresa Fermin PT DPMichaelle Start of Care Date: 01/25/24 Onset Date: 11/29/23 Patient Identified by Name and Date of : Yes REHABILITATION AND SPORTS THERAPY PHYSICAL THERAPY TREATMENT NOTE ASSESSMENT: Taty Loya tolerated the session with expected muscle soreness. He demonstrated no c/o with exercise and states he got a good workout but did not overdo it. The patient will continue to benefit from ongoing skilled physical therapy to progress toward set goals. PLAN FOR NEXT VISIT: focus on strengthening core and back SUBJECTIVE: Doing well today. Sore yesterday. Pain: Pain Pain Level: 0 Pain Location: Back Post Treatment Pain Post Treatment Pain Level: No Change OBJECTIVE MEASURES WITH LEVEL OF FUNCTION: No objective measures taken on this date. See assessment for response to treatment. TREATMENT: Therapeutic Exercise: 1: LFUC: seat @ 10, 5' subjective information gathered. L3 7: SB rollouts 3-way x10 with 3ctea 8: MANGO row 10# 2x10 ea B 9: rip CP and row x20 B 10: green s-s, F/R, W x50' ea 12: Step HS stretch 3x30 15: SCLP: (5/5), 170# 2x10, 180x10 17: step up 8 2x10 B 18: goblet squat 10# 2x10 19: hughes carry 10# 100' ea B Skilled Intervention: Patient was educated in proper exercise technique and purpose for exercises. Billing Therapeutic Exercise Treatment Minutes: 38 Skilled Treatment Time Minutes (timed and untimed codes): 38 Total Session Time (minutes): 40 Session Start Time : 1445 Session Stop Time : 1525 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 PTA [facility] 03-01-2024 History of Presen t illness Narrative Episode Visit Count: 11 Therapist That Will Accept/Oversee The Plan Of Care: Theresa Fermin PT DPT Start of Care Date: 01/25/24 Onset Date: 11/29/23 Patient Identified by Name and Date of : Yes REHABILITATION AND SPORTS THERAPY PHYSICAL THERAPY TREATMENT NOTE ASSESSMENT: Taty Loya tolerated the session with expected muscle soreness. He demonstrated no c/o with exercise and states he got a good workout but did not overdo it. The patient will continue to benefit from ongoing skilled physical therapy to progress toward set goals. PLAN FOR NEXT VISIT: focus on strengthening core and back SUBJECTIVE: Doing well today. Sore yesterday. Pain: Pain Pain Level: 0 Pain Location: Back Post Treatment Pain Post Treatment Pain Level: No Change OBJECTIVE MEASURES WITH LEVEL OF FUNCTION: No objective measures taken on this date. See assessment for response to treatment. TREATMENT: Therapeutic Exercise: 1: LFUC: seat @ 10, 5' subjective information gathered. L3 7: SB rollouts 3-way x10 with 3ctea 8: MANGO row 10# 2x10 ea B 9: rip CP and row x20 B 10: green s-s, F/R, W x50' ea 12: Step HS stretch 3x30 15: SCLP: (5/5), 170# 2x10, 180x10 17: step up 8 2x10 B 18: goblet squat 10# 2x10 19: hughes carry 10# 100' ea B Skilled Intervention: Patient was educated in proper exercise technique and purpose for exercises. Billing Therapeutic Exercise Treatment Minutes: 38 Skilled Treatment Time Minutes (timed and untimed codes): 38 Total Session Time (minutes): 40 Session Start Time : 1445 Session Stop Time : 1525 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 PTA documented in this encounter [facility] 02-28-2024 Note HNO ID: [id number] Author: THERESA FERMIN PT Service: ? Author Type: Physical Therapist Type: Progress Notes Filed: 02/28/2024 15:12 Note Text: Episode Visit Count: 10 Therapist That Will Accept/Oversee The Plan Of Care: Theresa Fermin PT, DPT Start of Care Date: 01/25/24 Onset Date: 11/29/23 Patient Identified by Name and Date of : Yes REHABILITATION AND SPORTS THERAPY PHYSICAL THERAPY TREATMENT NOTE ASSESSMENT: Taty Loya tolerated the session with fatigue and expected muscle soreness. He demonstrated difficulty with coordination with med ball throwing exercises and improvements in overall tolerance to activity. The patient will continue to benefit from ongoing skilled physical therapy to progress toward set goals. PLAN FOR NEXT VISIT: focus on strengthening core and back SUBJECTIVE: Patient reports that he did have some soreness over the weaknes, muscle soreness. However, he is having some midlines soreness as of today. Pain: Pain Pain Level: 1 Pain Location: Back Post Treatment Pain Post Treatment Pain Level: Better OBJECTIVE MEASURES WITH LEVEL OF FUNCTION: No objective measures recorded this date. TREATMENT: Therapeutic Exercise: 1: LFUC: seat @ 10, 5' subjective information gathered. L3 4: CCn pacs specialist low pulls 2x10 ea, 2.5 plates 7: SB rollouts 3-way x10 with 3ctea 8: MANGO row 20# DB 2x10 ea 12: Step HS stretch 3x30 13: CCn low row, 5 plates , 3x10 14: MB tosses w/ squat 15# 2x10 (standing on blue mat) 15: SCLP: (5/), 150$ x10, 170# x10, 180x10 16: OH MB slams, yellow, 2x10 Skilled Intervention: Patient was educated in proper exercise technique and purpose for exercises. Reviewed and educated patient on additions/changes for home exercise program. Skilled judgment was used in selection of appropriate interventions. Billing Therapeutic Exercise Treatment Minutes: 39 Skilled Treatment Time Minutes (timed and untimed codes): 39 Total Session Time (minutes): 39 Session Start Time : 1406 Session Stop Time : 1445 Theresa Fermin PT, DPT [facility] 02-28-2024 History of Presen t illness Narrative Episode Visit Count: 10 Therapist That Will Accept/Oversee The Plan Of Care: Theresa Fermin PT, DPT Start of Care Date: 01/25/24 Onset Date: 11/29/23 Patient Identified by Name and Date of : Yes REHABILITATION AND SPORTS THERAPY PHYSICAL THERAPY TREATMENT NOTE ASSESSMENT: Taty Loya tolerated the session with fatigue and expected muscle soreness. He demonstrated difficulty with coordination with med ball throwing exercises and improvements in overall tolerance to activity. The patient will continue to benefit from ongoing skilled physical therapy to progress toward set goals. PLAN FOR NEXT VISIT: focus on strengthening core and back SUBJECTIVE: Patient reports that he did have some soreness over the weaknes, muscle soreness. However, he is having some midlines soreness as of today. Pain: Pain Pain Level: 1 Pain Location: Back Post Treatment Pain Post Treatment Pain Level: Better OBJECTIVE MEASURES WITH LEVEL OF FUNCTION: No objective measures recorded this date. TREATMENT: Therapeutic Exercise: 1: LFUC: seat @ 10, 5' subjective information gathered. L3 4: CCn pacs specialist low pulls 2x10 ea, 2.5 plates 7: SB rollouts 3-way x10 with 3ctea 8: MANGO row 20# DB 2x10 ea 12: Step HS stretch 3x30 13: CCn low row, 5 plates , 3x10 14: MB tosses w/ squat 15# 2x10 (standing on blue mat) 15: SCLP: (5/5), 150$ x10, 170# x10, 180x10 16: OH MB slams, yellow, 2x10 Skilled Intervention: Patient was educated in proper exercise technique and purpose for exercises. Reviewed and educated patient on additions/changes for home exercise program. Skilled judgment was used in selection of appropriate interventions. Billing Therapeutic Exercise Treatment Minutes: 39 Skilled Treatment Time Minutes (timed and untimed codes): 39 Total Session Time (minutes): 39 Session Start Time : 1406 Session Stop Time : 1445 Theresa Fermin PT DPMichaelle documented in this encounter [facility] 02-25-2024 Note HNO ID: [id number] Author: THERESA FERMIN PT Service: ? Author Type: Physical Therapist Type: Progress Notes Filed: 02/25/2024 14:05 Note Text: Episode Visit Count: 9 Therapist That Will Accept/Oversee The Plan Of Care: Theresa Fermin PT DPT Start of Care Date: 01/25/24 Onset Date: 11/29/23 Patient Identified by Name and Date of : Yes REHABILITATION AND SPORTS THERAPY PHYSICAL THERAPY PROGRESS REPORT PLAN OF CARE UPDATE: Assessment: Tatytani Loya demonstrates improvements in heavy exertion, lifting, and physical activities. The patient has new goals added to address impairments in work-related activities and progressed toward goals. Patient continues to present with impairments in ADL's, flexibility, sensation, strength, and tissue tenderness that interfere with lifting, heavy exertion, physical activities, bending . Current prognosis is Excellent due to: current objective clinical presentation, positive past response to therapy . The patient will benefit from continued skilled therapy services to meet the updated goals for this plan of care as noted below. Goals for Episode of Care: established 01/25/24; updated 02/25/2024 Independent in home exercises.-MET Patient will decrease pain rating by 2 points to meet minimal clinical important difference for numeric pain rating scale.--MET Restore pain-free lumbar ROM to WNL to allow for improved body mechanics with work tasks.-PROGRESSING Stand / Walk 30 minutes without pain/symptoms.-MET Patient will increasing lifting ability to be able to perform work-related tasks. -NEW Patient Goals: Reduce pain, increase mobility Time Frame for Goals and Treatment : 03/25/24 Planned Interventions, Frequency, and Duration: 2x/week, 4 weeks Total Number of Visits Planned: 8 Patient to be seen for Therapeutic exercise (03839), Neuromuscular re-education (83379), Manual therapy (08367), Therapeutic activities (29030), Self-prison management (42176), Mechanical Traction (25633) PLAN FOR NEXT VISIT: focus on strengthening core and back SUBJECTIVE: Patient reports that his last session made him really really sore.. Functional Limitations: lifting, heavy exertion, physical activities, bending Pain: Pain Pain Level: 0 Pain Location: Back Post Treatment Pain Post Treatment Pain Level: No Change OBJECTIVE MEASURES WITH LEVEL OF FUNCTION: Lumbar Spine AROM Lumbar Flexion: Minimal limitation Lumbar Extension: Normal Lumbar R Side Lambert: Normal Lumbar L Side Lambert: Normal Lumbar R Rotation: Normal Lumbar L Rotation: Normal TREATMENT: Therapeutic Exercise: 1: LFUC: seat @ 10, 5' subjective information gathered. L3 3: [facility] lumbar extension pull throughs 2x10 4: [facility] pacs specialist low pulls 2x10 ea 7: SB rollouts 3-way x10 with 3ctea 8: Lateral band walks BTB W 2x50 9: FWD monster walks BTB 2x50 10: BOSU squats with 15# MB OH taps 2x10 11: Walking lunges 2x15# DB 2x25 12: Step HS stretch 3x30 Skilled Intervention: Patient was educated in proper exercise technique and purpose for exercises. Reviewed and educated patient on additions/changes for home exercise program. Skilled judgment was used in selection of appropriate interventions. Billing Therapeutic Exercise Treatment Minutes: 44 Skilled Treatment Time Minutes (timed and untimed codes): 44 Total Session Time (minutes): 44 Session Start Time : 1319 Session Stop Time : 1403 Theresa Fermin PT [facility] 02-25-2024 History of Presen t illness Narrative Episode Visit Count: 9 Therapist That Will Accept/Oversee The Plan Of Care: Theresa Fermin PT, DPT Start of Care Date: 01/25/24 Onset Date: 11/29/23 Patient Identified by Name and Date of : Yes REHABILITATION AND SPORTS THERAPY PHYSICAL THERAPY PROGRESS REPORT PLAN OF CARE UPDATE: Assessment: Taty Loya demonstrates improvements in heavy exertion, lifting, and physical activities. The patient has new goals added to address impairments in work-related activities and progressed toward goals. Patient continues to present with impairments in ADL's, flexibility, sensation, strength, and tissue tenderness that interfere with lifting, heavy exertion, physical activities, bending . Current prognosis is Excellent due to: current objective clinical presentation, positive past response to therapy . The patient will benefit from continued skilled therapy services to meet the updated goals for this plan of care as noted below. Goals for Episode of Care: established 01/25/24; updated 02/25/2024 Independent in home exercises.-MET Patient will decrease pain rating by 2 points to meet minimal clinical important difference for numeric pain rating scale.--MET Restore pain-free lumbar ROM to WNL to allow for improved body mechanics with work tasks.-PROGRESSING Stand / Walk 30 minutes without pain/symptoms.-MET Patient will increasing lifting ability to be able to perform work-related tasks. -NEW Patient Goals: Reduce pain, increase mobility Time Frame for Goals and Treatment : 03/25/24 Planned Interventions, Frequency, and Duration: 2x/week, 4 weeks Total Number of Visits Planned: 8 Patient to be seen for Therapeutic exercise (51007), Neuromuscular re-education (22597), Manual therapy (25536), Therapeutic activities (36875), Self-prison management (32178), Mechanical Traction (92722) PLAN FOR NEXT VISIT: focus on strengthening core and back SUBJECTIVE: Patient reports that his last session made him really really sore.. Functional Limitations: lifting, heavy exertion, physical activities, bending Pain: Pain Pain Level: 0 Pain Location: Back Post Treatment Pain Post Treatment Pain Level: No Change OBJECTIVE MEASURES WITH LEVEL OF FUNCTION: Lumbar Spine AROM Lumbar Flexion: Minimal limitation Lumbar Extension: Normal Lumbar R Side Lambert: Normal Lumbar L Side Lambert: Normal Lumbar R Rotation: Normal Lumbar L Rotation: Normal TREATMENT: Therapeutic Exercise: 1: LFUC: seat @ 10, 5' subjective information gathered. L3 3: [facility] lumbar extension pull throughs 2x10 4: [facility] pacs specialist low pulls 2x10 ea 7: SB rollouts 3-way x10 with 3ctea 8: Lateral band walks BTB W 2x50 9: FWD monster walks BTB 2x50 10: BOSU squats with 15# MB OH taps 2x10 11: Walking lunges 2x15# DB 2x25 12: Step HS stretch 3x30 Skilled Intervention: Patient was educated in proper exercise technique and purpose for exercises. Reviewed and educated patient on additions/changes for home exercise program. Skilled judgment was used in selection of appropriate interventions. Billing Therapeutic Exercise Treatment Minutes: 44 Skilled Treatment Time Minutes (timed and untimed codes): 44 Total Session Time (minutes): 44 Session Start Time : 1319 Session Stop Time : 1403 Theresa Fermin PT documented in this encounter [facility] 02-21-2024 Note HNO ID: [id number] Author: SHAKIRA HEATON PTA Service: ? Author Type: [employer] Type: Progress Notes Filed: 02/21/2024 15:32 Note Text: Episode Visit Count: 8 Therapist That Will Accept/Oversee The Plan Of Care: Theresa Fermin PT, DPT Start of Care Date: 01/25/24 Onset Date: 11/29/23 Patient Identified by Name and Date of : Yes REHABILITATION AND SPORTS THERAPY PHYSICAL THERAPY TREATMENT NOTE ASSESSMENT: Taty Loya tolerated the session with expected muscle soreness and no issues. He demonstrated no c/o with new exercise. The patient will continue to benefit from ongoing skilled physical therapy to progress toward set goals. PLAN FOR NEXT VISIT: focus on strengthening core and back SUBJECTIVE: Pt was sick last week. Pain: Pain Pain Level: 0 Pain Location: Back Post Treatment Pain Post Treatment Pain Level: No Change OBJECTIVE MEASURES WITH LEVEL OF FUNCTION: No objective measures taken on this date. See assessment for response to treatment. TREATMENT: Therapeutic Exercise: 1: LFUC: seat @ 10, 5' subjective information gathered. L3 2: CCn d1/d2 flexion/extension 4.5 plates x10 ea 4pl x10 ea 7: SB rollouts 3-way x10 with 3ctea 10: 90/90 KB carries 12#KB 2x100', alternating hands 15: GJC walkouts, x10 fwd/back, x10 s-s ea way 16: cc new squat with row 2x10 4.5 pl Skilled Intervention: Patient was educated in proper exercise technique and purpose for exercises. Self-[facility] Management: 1: review and educate on proper lifting Skilled Intervention: Skilled judgment in the selection of proper modification for activity of daily living/home management based on clinical presentation, deficits, and needs. Billing Therapeutic Exercise Treatment Minutes: 28 Self-Care/Home Management Treatment Minutes: 10 Skilled Treatment Time Minutes (timed and untimed codes): 38 Total Session Time (minutes): 40 Session Start Time : 1445 Session Stop Time 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 History of Presen t illness Narrative Episode Visit Count: 8 Therapist That Will Accept/Oversee The Plan Of Care: Theresa Fermin PT, DPT Start of Care Date: 01/25/24 Onset Date: 11/29/23 Patient Identified by Name and Date of : Yes REHABILITATION AND SPORTS THERAPY PHYSICAL THERAPY TREATMENT NOTE ASSESSMENT: Taty Loya tolerated the session with expected muscle soreness and no issues. He demonstrated no c/o with new exercise. The patient will continue to benefit from ongoing skilled physical therapy to progress toward set goals. PLAN FOR NEXT VISIT: focus on strengthening core and back SUBJECTIVE: Pt was sick last week. Pain: Pain Pain Level: 0 Pain Location: Back Post Treatment Pain Post Treatment Pain Level: No Change OBJECTIVE MEASURES WITH LEVEL OF FUNCTION: No objective measures taken on this date. See assessment for response to treatment. TREATMENT: Therapeutic Exercise: 1: LFUC: seat @ 10, 5' subjective information gathered. L3 2: CCn d1/d2 flexion/extension 4.5 plates x10 ea 4pl x10 ea 7: SB rollouts 3-way x10 with 3ctea 10: 90/90 KB carries 12#KB 2x100', alternating hands 15: GJC walkouts, x10 fwd/back, x10 s-s ea way 16: cc new squat with row 2x10 4.5 pl Skilled Intervention: Patient was educated in proper exercise technique and purpose for exercises. Self-[facility] Management: 1: review and educate on proper lifting Skilled Intervention: Skilled judgment in the selection of proper modification for activity of daily living/home management based on clinical presentation, deficits, and needs. Billing Therapeutic Exercise Treatment Minutes: 28 Self-Care/Home Management Treatment Minutes: 10 Skilled Treatment Time Minutes (timed and untimed codes): 38 Total Session Time (minutes): 40 Session Start Time : 1445 Session Stop Time : 1525 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 PTA documented in this encounter [facility] 02-14-2024 Note HNO ID: [id number] Author: SHAKIRA HEATON PTA Service: ? Author Type: [employer] Type: Progress Notes Filed: 02/14/2024 14:51 Note Text: Episode Visit Count: 7 Therapist That Will Accept/Oversee The Plan Of Care: Theresa Fermin PT, DPT Start of Care Date: 01/25/24 Onset Date: 11/29/23 Patient Identified by Name and Date of : Yes REHABILITATION AND SPORTS THERAPY PHYSICAL THERAPY TREATMENT NOTE ASSESSMENT: Taty Loya tolerated the session with fatigue and no issues. He demonstrated no c/o in foot with exercise. The patient will continue to benefit from ongoing skilled physical therapy to progress toward set goals. PLAN FOR NEXT VISIT: focus on strengthening core and back SUBJECTIVE: Pt reports pain in bottom of foot near heel this am. Pain: Pain Pain Level: 0 Pain Location: Back Post Treatment Pain Post Treatment Pain Level: No Change OBJECTIVE MEASURES WITH LEVEL OF FUNCTION: No objective measures taken on this date. See assessment for response to treatment. TREATMENT: Therapeutic Exercise: 1: LFUC: seat @ 10, 5' subjective information gathered. 6: Work simulation box carries, 25# 2x50' ea B 7: SB rollouts 3-way x10 with 3ctea 8: Wheel up wall 2x10 9: TRX squats 3x10 11: [place] carries: 12# KB alternating hands 2x100; 12: BOSU step ups/overs F 2x10 alt 13: BOSU sustained squats with OH bar taps 8# MB 2x10 15: GJC walkouts, x10 fwd/back, x10 s-s ea way Skilled Intervention: Patient was educated in proper exercise technique and purpose for exercises. Skilled judgment was used in selection of appropriate interventions. Billing Therapeutic Exercise Treatment Minutes: 38 Skilled Treatment Time Minutes (timed and untimed codes): 38 Total Session Time (minutes): 39 Session Start Time : 1400 Session Stop Time : 1439 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 PTA [facility] 02-14-2024 History of Presen t illness Narrative Episode Visit Count: 7 Therapist That Will Accept/Oversee The Plan Of Care: Theresa Fermin PT, DPT Start of Care Date: 01/25/24 Onset Date: 11/29/23 Patient Identified by Name and Date of : Yes REHABILITATION AND SPORTS THERAPY PHYSICAL THERAPY TREATMENT NOTE ASSESSMENT: Taty Loya tolerated the session with fatigue and no issues. He demonstrated no c/o in foot with exercise. The patient will continue to benefit from ongoing skilled physical therapy to progress toward set goals. PLAN FOR NEXT VISIT: focus on strengthening core and back SUBJECTIVE: Pt reports pain in bottom of foot near heel this am. Pain: Pain Pain Level: 0 Pain Location: Back Post Treatment Pain Post Treatment Pain Level: No Change OBJECTIVE MEASURES WITH LEVEL OF FUNCTION: No objective measures taken on this date. See assessment for response to treatment. TREATMENT: Therapeutic Exercise: 1: LFUC: seat @ 10, 5' subjective information gathered. 6: Work simulation box carries, 90/90 25# 2x50' ea B 7: SB rollouts 3-way x10 with 3ctea 8: Wheel up wall 2x10 9: TRX squats 3x10 11: [place] carries: 12# KB alternating hands 2x100; 12: BOSU step ups/overs F 2x10 alt 13: BOSU sustained squats with OH bar taps 8# MB 2x10 15: GJC walkouts, x10 fwd/back, x10 s-s ea way Skilled Intervention: Patient was educated in proper exercise technique and purpose for exercises. Skilled judgment was used in selection of appropriate interventions. Billing Therapeutic Exercise Treatment Minutes: 38 Skilled Treatment Time Minutes (timed and untimed codes): 38 Total Session Time (minutes): 39 Session Start Time : 1400 Session Stop Time : 1439 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 PTA documented in this encounter [facility] 02-09-2024 Note HNO ID: [id number] Author: THERESA FERMIN PT Service: ? Author Type: Physical Therapist Type: Progress Notes Filed: 02/09/2024 07:46 Note Text: Episode Visit Count: 6 Therapist That Will Accept/Oversee The Plan Of Care: Theresa Fermin PT, DPT Start of Care Date: 01/25/24 Onset Date: 11/29/23 Patient Identified by Name and Date of : Yes REHABILITATION AND SPORTS THERAPY PHYSICAL THERAPY TREATMENT NOTE ASSESSMENT: Taty Loya tolerated the session with fatigue and expected muscle soreness. Patient was challenged appropriately with balance and strengthening interventions this date. He did fatigue by end of session and was advised to continue with lumbar mobility and stretching exercises on his own. The patient will continue to benefit from ongoing skilled physical therapy to progress toward set goals. PLAN FOR NEXT VISIT: focus on strengthening core and back SUBJECTIVE: Patient reports he was a bit sore the other day and did have some minor pain at work in his low back. Patient states that once he got off of his feet the pain went away. Pain: Pain Pain Level: 0 Pain Location: Back Post Treatment Pain Post Treatment Pain Level: No Change OBJECTIVE MEASURES WITH LEVEL OF FUNCTION: No objective measures recorded this date. TREATMENT: Therapeutic Exercise: 1: LFUC: seat @ 10, 5' subjective information gathered. 7: SB rollouts 3-way x10 ea 8: Wheel up wall 2x10 9: TRX squats 3x10 10: 90/90 KB carries 12#KB 2x100', alternating hands 11: [place] carries: 12# KB alternating hands 2x100; 12: BOSU step ups/overs 2x10 13: BOSU sustained squats with OH bar taps 8# MB 14: BOSU balance with s-s MB taps, 8# MB, 2x10ea 15: GJC walkouts, x10 fwd/back, x5 s-s ea way Skilled Intervention: Patient was educated in proper exercise technique and purpose for exercises. Reviewed and educated patient on additions/changes for home exercise program. Skilled judgment was used in selection of appropriate interventions. Billing Therapeutic Exercise Treatment Minutes: 42 Skilled Treatment Time Minutes (timed and untimed codes): 42 Total Session Time (minutes): 43 Session Start Time : 701 Session Stop Time : 744 Theresa Fermin PT, DPT [facility] 02-09-2024 History of Presen t illness Narrative Episode Visit Count: 6 Therapist That Will Accept/Oversee The Plan Of Care: Theresa Fermin PT, DPT Start of Care Date: 01/25/24 Onset Date: 11/29/23 Patient Identified by Name and Date of : Yes REHABILITATION AND SPORTS THERAPY PHYSICAL THERAPY TREATMENT NOTE ASSESSMENT: Taty Loya tolerated the session with fatigue and expected muscle soreness. Patient was challenged appropriately with balance and strengthening interventions this date. He did fatigue by end of session and was advised to continue with lumbar mobility and stretching exercises on his own. The patient will continue to benefit from ongoing skilled physical therapy to progress toward set goals. PLAN FOR NEXT VISIT: focus on strengthening core and back SUBJECTIVE: Patient reports he was a bit sore the other day and did have some minor pain at work in his low back. Patient states that once he got off of his feet the pain went away. Pain: Pain Pain Level: 0 Pain Location: Back Post Treatment Pain Post Treatment Pain Level: No Change OBJECTIVE MEASURES WITH LEVEL OF FUNCTION: No objective measures recorded this date. TREATMENT: Therapeutic Exercise: 1: LFUC: seat @ 10, 5' subjective information gathered. 7: SB rollouts 3-way x10 ea 8: Wheel up wall 2x10 9: TRX squats 3x10 10: 90/90 KB carries 12#KB 2x100', alternating hands 11: [place] carries: 12# KB alternating hands 2x100; 12: BOSU step ups/overs 2x10 13: BOSU sustained squats with [place] bar taps 8# MB 14: BOSU balance with s-s MB taps, 8# MB, 2x10ea 15: [facility] walkouts, x10 fwd/back, x5 s-s ea way Skilled Intervention: Patient was educated in proper exercise technique and purpose for exercises. Reviewed and educated patient on additions/changes for home exercise program. Skilled judgment was used in selection of appropriate interventions. Billing Therapeutic Exercise Treatment Minutes: 42 Skilled Treatment Time Minutes (timed and untimed codes): 42 Total Session Time (minutes): 43 Session Start Time : 701 Session Stop Time : 744 Theresa Fermin PT, DPT documented in this encounter [facility] 02-07-2024 Note HNO ID: [id number] Author: THERESA FERMIN PT Service: ? Author Type: Physical Therapist Type: Progress Notes Filed: 02/07/2024 14:52 Note Text: Episode Visit Count: 5 Therapist That Will Accept/Oversee The Plan Of Care: Theresa Fermin PT, DPT Start of Care Date: 01/25/24 Onset Date: 11/29/23 Patient Identified by Name and Date of : Yes REHABILITATION AND SPORTS THERAPY PHYSICAL THERAPY TREATMENT NOTE ASSESSMENT: Taty Loya tolerated the session with muscle fatigue and expected muscle soreness. He demonstrated improvements in tolerance to strengthening interventions. Patient did have difficulty with 90/90 carries with weight. The patient will continue to benefit from ongoing skilled physical therapy to progress toward set goals. PLAN FOR NEXT VISIT: d/c mechanical traction. focus on strengthening core and back SUBJECTIVE: Patient does reprot some mild back soreness that has since cleared up. Patient did state that he did have some pain in the middle of the night. Pain: Pain Pain Level: 2 Pain Location: Back Post Treatment Pain Post Treatment Pain Level: Better Post Treatment Symptoms: soreness OBJECTIVE MEASURES WITH LEVEL OF FUNCTION: No objective measures recorded this date. TREATMENT: Therapeutic Exercise: 1: LFUC: seat @ 10, 5' subjective information gathered. 2: CCn d1/d2 flexion/extension 4.5 plates 2x10 ea 3: Hex squats 50# x5 4: hex squats 75# 2x10 5: Hex carries 75# 25' 6: Work simulation box carries, 90/90 turns 25# 2x5 7: SB rollouts 3-way x10 ea Skilled Intervention: Patient was educated in proper exercise technique and purpose for exercises. Reviewed and educated patient on additions/changes for home exercise program. Skilled judgment was used in selection of appropriate interventions. Billing Therapeutic Exercise Treatment Minutes: 45 Skilled Treatment Time Minutes (timed and untimed codes): 45 Total Session Time (minutes): 46 Session Start Time : 1406 Session Stop Time : 1452 Theresa Fermin PT, DPT [facility] 02-07-2024 History of Presen t illness Narrative Episode Visit Count: 5 Therapist That Will Accept/Oversee The Plan Of Care: Theresa Fermin PT DPMichaelle Start of Care Date: 01/25/24 Onset Date: 11/29/23 Patient Identified by Name and Date of : Yes REHABILITATION AND SPORTS THERAPY PHYSICAL THERAPY TREATMENT NOTE ASSESSMENT: Taty Loya tolerated the session with muscle fatigue and expected muscle soreness. He demonstrated improvements in tolerance to strengthening interventions. Patient did have difficulty with 90/90 carries with weight. The patient will continue to benefit from ongoing skilled physical therapy to progress toward set goals. PLAN FOR NEXT VISIT: d/c mechanical traction. focus on strengthening core and back SUBJECTIVE: Patient does reprot some mild back soreness that has since cleared up. Patient did state that he did have some pain in the middle of the night. Pain: Pain Pain Level: 2 Pain Location: Back Post Treatment Pain Post Treatment Pain Level: Better Post Treatment Symptoms: soreness OBJECTIVE MEASURES WITH LEVEL OF FUNCTION: No objective measures recorded this date. TREATMENT: Therapeutic Exercise: 1: LFUC: seat @ 10, 5' subjective information gathered. 2: CCn d1/d2 flexion/extension 4.5 plates 2x10 ea 3: Hex squats 50# x5 4: hex squats 75# 2x10 5: Hex carries 75# 25' 6: Work simulation box carries, 90/90 turns 25# 2x5 7: SB rollouts 3-way x10 ea Skilled Intervention: Patient was educated in proper exercise technique and purpose for exercises. Reviewed and educated patient on additions/changes for home exercise program. Skilled judgment was used in selection of appropriate interventions. Billing Therapeutic Exercise Treatment Minutes: 45 Skilled Treatment Time Minutes (timed and untimed codes): 45 Total Session Time (minutes): 46 Session Start Time : 1406 Session Stop Time : 1452 Theresa Fermin PT DPT documented in this encounter [facility] 02-04-2024 Note HNO ID: [id number] Author: THERESA FERMIN PT Service: ? Author Type: Physical Therapist Type: Progress Notes Filed: 02/04/2024 14:48 Note Text: Episode Visit Count: 4 Therapist That Will Accept/Oversee The Plan Of Care: Theresa Fermin PT, DPT Start of Care Date: 01/25/24 Onset Date: 11/29/23 Patient Identified by Name and Date of : Yes REHABILITATION AND SPORTS THERAPY PHYSICAL THERAPY TREATMENT NOTE ASSESSMENT: Taty Loya tolerated the session with expected muscle soreness and no issues. He demonstrated improvements in core stability and back extension activation. The patient will continue to benefit from ongoing skilled physical therapy to progress toward set goals. PLAN FOR NEXT VISIT: d/c mechanical traction. focus on strengthening core and back SUBJECTIVE: Patient reports that his back is feeling better and better. Pain: Pain Pain Level: 0 Post Treatment Pain Post Treatment Pain Level: No Change OBJECTIVE MEASURES WITH LEVEL OF FUNCTION: No objective measures recorded this date. TREATMENT: Therapeutic Exercise: 6: quadruped blanco pose x5 8: Quadruped bird dogs 2x10 9: Seated good mornings 25# 2x10, slow pace 10: plastic surgery assistant pallof presses: [address] (anto-rotation press) Skilled Intervention: Patient was educated in proper exercise technique and purpose for exercises. Reviewed and educated patient on additions/changes for home exercise program. Skilled judgment was used in selection of appropriate interventions. Modalities: Mechanical Traction Body Region Treated - Mechanical Traction: lumbar Patient Position: hooklying Pounds: 115 (75 low) Static: no Intermittent: yes Seconds On: 30 Seconds Off: 10 Minutes: 15 Skilled Intervention: Proper administration and selection of modality based on clinical presentation, deficits, and needs. Patient response monitored throughout treatment. Billing Therapeutic Exercise Treatment Minutes: 24 * Mechanical Traction: 1 unit Skilled Treatment Time Minutes (timed and untimed codes): 39 Total Session Time (minutes): 40 Session Start Time : 1406 Session Stop Time : 1446 Theresa Fermin PT [facility] 02-04-2024 History of Presen t illness Narrative Episode Visit Count: 4 Therapist That Will Accept/Oversee The Plan Of Care: Theresa Fermin PT, DPT Start of Care Date: 01/25/24 Onset Date: 11/29/23 Patient Identified by Name and Date of : Yes REHABILITATION AND SPORTS THERAPY PHYSICAL THERAPY TREATMENT NOTE ASSESSMENT: Taty Loya tolerated the session with expected muscle soreness and no issues. He demonstrated improvements in core stability and back extension activation. The patient will continue to benefit from ongoing skilled physical therapy to progress toward set goals. PLAN FOR NEXT VISIT: d/c mechanical traction. focus on strengthening core and back SUBJECTIVE: Patient reports that his back is feeling better and better. Pain: Pain Pain Level: 0 Post Treatment Pain Post Treatment Pain Level: No Change OBJECTIVE MEASURES WITH LEVEL OF FUNCTION: No objective measures recorded this date. TREATMENT: Therapeutic Exercise: 6: quadruped blanco pose x5 8: Quadruped bird dogs 2x10 9: Seated good mornings 25# 2x10, slow pace 10: plastic surgery assistant pallof presses: [address] (anto-rotation press) Skilled Intervention: Patient was educated in proper exercise technique and purpose for exercises. Reviewed and educated patient on additions/changes for home exercise program. Skilled judgment was used in selection of appropriate interventions. Modalities: Mechanical Traction Body Region Treated - Mechanical Traction: lumbar Patient Position: hooklying Pounds: 115 (75 low) Static: no Intermittent: yes Seconds On: 30 Seconds Off: 10 Minutes: 15 Skilled Intervention: Proper administration and selection of modality based on clinical presentation, deficits, and needs. Patient response monitored throughout treatment. Billing Therapeutic Exercise Treatment Minutes: 24 * Mechanical Traction: 1 unit Skilled Treatment Time Minutes (timed and untimed codes): 39 Total Session Time (minutes): 40 Session Start Time : 1406 Session Stop Time : 1446 Theresa Fermin PT documented in this encounter [facility] 01-31-2024 Note HNO ID: [id number] Author: THERESA FERMIN PT Service: ? Author Type: Physical Therapist Type: Progress Notes Filed: 01/31/2024 14:48 Note Text: Episode Visit Count: 3 Therapist That Will Accept/Oversee The Plan Of Care: Theresa Fermin PT, DPT Start of Care Date: 01/25/24 Onset Date: 11/29/23 Patient Identified by Name and Date of : Yes REHABILITATION AND SPORTS THERAPY PHYSICAL THERAPY TREATMENT NOTE ASSESSMENT: Taty Loya tolerated the session with decreased symptoms and expected muscle soreness. He demonstrated difficulty with lumbar and bilateral hip mobility this date. The patient will continue to benefit from ongoing skilled physical therapy to progress toward set goals. PLAN FOR NEXT VISIT: mechanical traction, lumbar mobility, core stability SUBJECTIVE: Patient notes only a little bit of soreness at work this morning and some discomfort driving, but otherwise is not having a lot of pain. Pain: Pain Pain Level: 1 Pain Location: Back, Low Back/Lumbar Spine- Midline Post Treatment Pain Post Treatment Pain Level: Better OBJECTIVE MEASURES WITH LEVEL OF FUNCTION: No objective measures recorded this date. TREATMENT: Therapeutic Exercise: 2: Supine LTR 2x15 3: Supine cross body gluteal stretch 3x30 4: Supine deadbugs with PPT 2x10 5: quadruped cat/cow x30 6: quadruped blanco pose x5 7: CLP: 40# 3x10 (NV) Skilled Intervention: Patient was educated in proper exercise technique and purpose for exercises. Reviewed and educated patient on additions/changes for home exercise program. Skilled judgment was used in selection of appropriate interventions. Modalities: Mechanical Traction Body Region Treated - Mechanical Traction: lumbar Patient Position: hooklying Pounds: 115 Static: no Intermittent: yes Seconds On: 30 Seconds Off: 10 Minutes: 15 Skilled Intervention: Proper administration and selection of modality based on clinical presentation, deficits, and needs. Patient response monitored throughout treatment. Billing Therapeutic Exercise Treatment Minutes: 23 * Mechanical Traction: 1 unit Skilled Treatment Time Minutes (timed and untimed codes): 38 Total Session Time (minutes): 38 Session Start Time : 1409 (patient late) Session Stop Time : 1447 Theresa Fermin PT, DPT [facility] 01-31-2024 History of Presen t illness Narrative Episode Visit Count: 3 Therapist That Will Accept/Oversee The Plan Of Care: Theresa Fermin PT, DPT Start of Care Date: 01/25/24 Onset Date: 11/29/23 Patient Identified by Name and Date of : Yes REHABILITATION AND SPORTS THERAPY PHYSICAL THERAPY TREATMENT NOTE ASSESSMENT: Taty Loya tolerated the session with decreased symptoms and expected muscle soreness. He demonstrated difficulty with lumbar and bilateral hip mobility this date. The patient will continue to benefit from ongoing skilled physical therapy to progress toward set goals. PLAN FOR NEXT VISIT: mechanical traction, lumbar mobility, core stability SUBJECTIVE: Patient notes only a little bit of soreness at work this morning and some discomfort driving, but otherwise is not having a lot of pain. Pain: Pain Pain Level: 1 Pain Location: Back, Low Back/Lumbar Spine- Midline Post Treatment Pain Post Treatment Pain Level: Better OBJECTIVE MEASURES WITH LEVEL OF FUNCTION: No objective measures recorded this date. TREATMENT: Therapeutic Exercise: 2: Supine LTR 2x15 3: Supine cross body gluteal stretch 3x30 4: Supine deadbugs with PPT 2x10 5: quadruped cat/cow x30 6: quadruped blanco pose x5 7: CLP: 40# 3x10 (NV) Skilled Intervention: Patient was educated in proper exercise technique and purpose for exercises. Reviewed and educated patient on additions/changes for home exercise program. Skilled judgment was used in selection of appropriate interventions. Modalities: Mechanical Traction Body Region Treated - Mechanical Traction: lumbar Patient Position: hooklying Pounds: 115 Static: no Intermittent: yes Seconds On: 30 Seconds Off: 10 Minutes: 15 Skilled Intervention: Proper administration and selection of modality based on clinical presentation, deficits, and needs. Patient response monitored throughout treatment. Billing Therapeutic Exercise Treatment Minutes: 23 * Mechanical Traction: 1 unit Skilled Treatment Time Minutes (timed and untimed codes): 38 Total Session Time (minutes): 38 Session Start Time : 1409 (patient late) Session Stop Time : 1447 Theresa Fermin PT DPMichaelle documented in this encounter [facility] 01-27-2024 Note HNO ID: [id number] Author: THERESA FERMIN PT Service: ? Author Type: Physical Therapist Type: Progress Notes Filed: 01/27/2024 15:53 Note Text: Episode Visit Count: 2 Therapist That Will Accept/Oversee The Plan Of Care: Theresa Fermin PT DPT Start of Care Date: 01/25/24 Onset Date: 11/29/23 Patient Identified by Name and Date of : Yes REHABILITATION AND SPORTS THERAPY PHYSICAL THERAPY TREATMENT NOTE ASSESSMENT: Taty Loya tolerated the session with decreased symptoms and expected muscle soreness. He demonstrated improvements in tolerance to activity and symptoms after mechanical traction. The patient will continue to benefit from ongoing skilled physical therapy to progress toward set goals. PLAN FOR NEXT VISIT: mechanical traction, lumbar mobility, core stability SUBJECTIVE: Patient notes that after last session he felt some relief in tightness, but did have some pain this morning. Pain: Pain Pain Level: 2 Pain Location: Back, Low Back/Lumbar Spine- Midline Post Treatment Pain Post Treatment Pain Level: Better OBJECTIVE MEASURES WITH LEVEL OF FUNCTION: No objective measures recorded this date. TREATMENT: Therapeutic Exercise: 1: Nustep: 02/22, lvl 1 5', ROM, intake gathered. 2: CBE: 50# 3x10 3: Supine cross body gluteal stretch 3x30 4: Prone hip extension 2x10, alternating 5: Prone on elbows 5', static 6: Prone on hands 1 rep, fatigued quickly. Skilled Intervention: Patient was educated in proper exercise technique and purpose for exercises. Reviewed and educated patient on additions/changes for home exercise program. Skilled judgment was used in selection of appropriate interventions. Modalities: Mechanical Traction Body Region Treated - Mechanical Traction: lumbar Patient Position: hooklying Pounds: 110 (min 70#) Static: no Intermittent: yes Seconds On: 30 Seconds Off: 10 Minutes: 15 Skilled Intervention: Proper administration and selection of modality based on clinical presentation, deficits, and needs. Patient response monitored throughout treatment. Billing Therapeutic Exercise Treatment Minutes: 30 * Mechanical Traction: 1 unit Skilled Treatment Time Minutes (timed and untimed codes): 50 Total Session Time (minutes): 51 Session Start Time : 1453 Session Stop Time : 1544 Theresa Fermin PT, DPT [facility] 01-27-2024 History of Presen t illness Narrative Episode Visit Count: 2 Therapist That Will Accept/Oversee The Plan Of Care: Theresa Fermin PT, DPT Start of Care Date: 01/25/24 Onset Date: 11/29/23 Patient Identified by Name and Date of : Yes REHABILITATION AND SPORTS THERAPY PHYSICAL THERAPY TREATMENT NOTE ASSESSMENT: Taty Loya tolerated the session with decreased symptoms and expected muscle soreness. He demonstrated improvements in tolerance to activity and symptoms after mechanical traction. The patient will continue to benefit from ongoing skilled physical therapy to progress toward set goals. PLAN FOR NEXT VISIT: mechanical traction, lumbar mobility, core stability SUBJECTIVE: Patient notes that after last session he felt some relief in tightness, but did have some pain this morning. Pain: Pain Pain Level: 2 Pain Location: Back, Low Back/Lumbar Spine- Midline Post Treatment Pain Post Treatment Pain Level: Better OBJECTIVE MEASURES WITH LEVEL OF FUNCTION: No objective measures recorded this date. TREATMENT: Therapeutic Exercise: 1: Nustep: 02/22, lvl 1 5', ROM, intake gathered. 2: CBE: 50# 3x10 3: Supine cross body gluteal stretch 3x30 4: Prone hip extension 2x10, alternating 5: Prone on elbows 5', static 6: Prone on hands 1 rep, fatigued quickly. Skilled Intervention: Patient was educated in proper exercise technique and purpose for exercises. Reviewed and educated patient on additions/changes for home exercise program. Skilled judgment was used in selection of appropriate interventions. Modalities: Mechanical Traction Body Region Treated - Mechanical Traction: lumbar Patient Position: hooklying Pounds: 110 (min 70#) Static: no Intermittent: yes Seconds On: 30 Seconds Off: 10 Minutes: 15 Skilled Intervention: Proper administration and selection of modality based on clinical presentation, deficits, and needs. Patient response monitored throughout treatment. Billing Therapeutic Exercise Treatment Minutes: 30 * Mechanical Traction: 1 unit Skilled Treatment Time Minutes (timed and untimed codes): 50 Total Session Time (minutes): 51 Session Start Time : 1453 Session Stop Time : 1544 Theresa Fermin PT, DPT documented in this encounter [facility] 01-25-2024 History of Presen t illness Narrative Program_ID:[id number] Access Code: [email or web address] URL: [email or web address] Date: 01-25-2024 Prepared By: Theresa Fermin Program Notes Exercises - Seated Hamstring Stretch - 1 x daily - 7 x weekly - 3 sets - 10 reps - Roller Massage Elongated Hamstring Release - 1 x daily - 7 x weekly - 3 sets - 10 reps - Supine Hamstring Stretch with Strap - 1 x daily - 7 x weekly - 3 sets - 10 reps - Supine Single Knee to Chest Stretch - 1 x daily - 7 x weekly - 3 sets - 10 reps - Prone Press Up - 1 x daily - 7 x weekly - 3 sets - 10 reps - Supine Posterior Pelvic Tilt - 1 x daily - 7 x weekly - 3 sets - 10 reps Episode Visit Count: 1 Therapist That Will Accept/Oversee The Plan Of Care: Theresa Fermin PT, DPT Start of Care Date: 01/25/24 Onset Date: 11/29/23 Patient Identified by Name and Date of : Yes REHABILITATION AND SPORTS THERAPY PHYSICAL THERAPY EVALUATION PLAN OF CARE: Assessment: Taty Loya presents with chief complaint of low back pain that interferes with walking, standing, physical activities, recreational activities, lifting, heavy exertion, bending . He presents with impairments in ADL's, flexibility, joint mobility, overall function, range of motion, and sensation. Prognosis for therapy is Good due to: current objective clinical presentation . He will benefit from skilled therapy services to meet the goals established for this plan of care as noted below. Goals for Episode of Care: established 01/25/24 Independent in home exercises. Patient will decrease pain rating by 2 points to meet minimal clinical important difference for numeric pain rating scale. Restore pain-free lumbar ROM to WNL to allow for improved body mechanics with work tasks. Stand / Walk 30 minutes without pain/symptoms. Patient Goals: Reduce pain, increase mobility Time Frame for Goals and Treatment : 03/25/24 Planned Interventions, Frequency, and Duration: Current Frequency: 2x/week Duration: 8 weeks Total Number of Visits Planned: 16 Planned Treatment Interventions: Therapeutic exercise (00351), Neuromuscular re-education (46528), Manual therapy (69571), Therapeutic activities (01440), Self-prison management (90307), Mechanical Traction (85677) PLAN FOR NEXT VISIT: Patient demonstrates good understanding of plan of care and treatment. The above goals and plan of care were discussed and agreed upon by patient/family. SUBJECTIVE: Patient states that he was at work back in November and was at work and doing a lot of lifting. He states he was sore for a few days and then went to bend over and hurt his back really badly. Initally, patient had some radicular pain, but that has subsided some. 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 5 points is clinically meaningfully difference Percentiles provide an indication of how the patient's score ranks in relation to the general population. Higher percentile rankings indicate better function/quality of life. 50th percentile is the average of the general population and indicates half of respondents had a worse score. OBJECTIVE MEASURES WITH LEVEL OF FUNCTION: Lumbar Spine AROM Lumbar Flexion: Moderate limitation Lumbar Extension: Minimal limitation Lumbar R Side Lambert: Minimal limitation Lumbar L Side Lambert: Minimal limitation Lumbar R Rotation: Minimal limitation Lumbar L Rotation: Minimal limitation Special Tests - Hip and Spine Hip and Spine Special Tests: Extension with Rotation Test Extension with Rotation Test: Right Positive, Left Positive Education: Education Learning Preferences: Demonstration, Explanation Barriers: None Learning/educational needs: Home exercise program, Plan of Care, Body Mechanics, Safety Education Provided: Yes, see treatment interventions for education provided Education Provided To: Patient Education Mode/Type: Demonstration, Literature/Printed Materials Response to Education/Teach Back: States/Identifies TREATMENT: PT Treatment Interventions: Modalities, Self-[facility] Management Evaluation Evaluation Self-[facility] Management: 1: *Supine PPT 2: *Supine SKTC 3: *Supine HS stretch 4: *seated HS stretch 5: *standing HS strcetch 6: *Prone press ups. Skilled Intervention: Skilled judgment in the selection of proper modification for activity of daily living/home management based on clinical presentation, deficits, and needs. Educated the patient regarding recommendations and provided written instruction to facilitate compliance. Provided written instruction for activities of daily living techniques to facilitate proper performance and compliance. Modalities: Mechanical Traction Body Region Treated - Mechanical Traction: lumbar Patient Position: hooklying Pounds: 100 Static: no Intermittent: yes Seconds On: 30 Seconds Off: 10 Minutes: 10 Skilled Intervention: Proper administration and selection of modality based on clinical presentation, deficits, and needs. Patient response monitored throughout treatment. Billing Self-Care/Home Management Treatment Minutes: 10 * Mechanical Traction: 1 unit Skilled Treatment Time Minutes (timed and untimed codes): 44 Total Session Time (minutes): 44 Session Start Time : 1457 Session Stop Time : 1541 Theresa Fermin PT, DPT documented in this encounter [facility] 01-25-2024 Note HNO ID: [id number] Author: THERESA FERMIN PT Service: ? Author Type: Physical Therapist Type: Progress Notes Filed: 01/27/2024 14:56 Note Text: Episode Visit Count: 1 Therapist That Will Accept/Oversee The Plan Of Care: Theresa Fermin PT, DPT Start of Care Date: 01/25/24 Onset Date: 11/29/23 Patient Identified by Name and Date of : Yes REHABILITATION AND SPORTS THERAPY PHYSICAL THERAPY EVALUATION PLAN OF CARE: Assessment: Taty Loya presents with chief complaint of low back pain that interferes with walking, standing, physical activities, recreational activities, lifting, heavy exertion, bending . He presents with impairments in ADL's, flexibility, joint mobility, overall function, range of motion, and sensation. Prognosis for therapy is Good due to: current objective clinical presentation . He will benefit from skilled therapy services to meet the goals established for this plan of care as noted below. Goals for Episode of Care: established 01/25/24 Independent in home exercises. Patient will decrease pain rating by 2 points to meet minimal clinical important difference for numeric pain rating scale. Restore pain-free lumbar ROM to WNL to allow for improved body mechanics with work tasks. Stand / Walk 30 minutes without pain/symptoms. Patient Goals: Reduce pain, increase mobility Time Frame for Goals and Treatment : 03/25/24 Planned Interventions, Frequency, and Duration: Current Frequency: 2x/week Duration: 8 weeks Total Number of Visits Planned: 16 Planned Treatment Interventions: Therapeutic exercise (81709), Neuromuscular re-education (98921), Manual therapy (80035), Therapeutic activities (00302), Self-prison management (05513), Mechanical Traction (52894) PLAN FOR NEXT VISIT: mechanical traction, lumbar mobility, core stability Patient demonstrates good understanding of plan of care and treatment. The above goals and plan of care were discussed and agreed upon by patient/family. SUBJECTIVE: Patient states that he was at work back in November and was at work and doing a lot of lifting. He states he was sore for a few days and then went to bend over and hurt his back really badly. Initally, patient had some radicular pain, but that has subsided some. 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 5 points is clinically meaningfully difference Percentiles provide an indication of how the patient's score ranks in relation to the general population. Higher percentile rankings indicate better function/quality of life. 50th percentile is the average of the general population and indicates half of respondents had a worse score. OBJECTIVE MEASURES WITH LEVEL OF FUNCTION: Lumbar Spine AROM Lumbar Flexion: Moderate limitation Lumbar Extension: Minimal limitation Lumbar R Side Lambert: Minimal limitation Lumbar L Side Lambert: Minimal limitation Lumbar R Rotation: Minimal limitation Lumbar L Rotation: Minimal limitation Special Tests - Hip and Spine Hip and Spine Special Tests: Extension with Rotation Test Extension with Rotation Test: Right Positive, Left Positive Education: Education Learning Preferences: Demonstration, Explanation Barriers: None Learning/educational needs: Home exercise program, Plan of Care, Body Mechanics, Safety Education Provided: Yes, see treatment interventions for education provided Education Provided To: Patient Education Mode/Type: Demonstration, Literature/Printed Materials Response to Education/Teach Back: States/Identifies TREATMENT: PT Treatment Interventions: Modalities, Self-Mcfp Management Evaluation Evaluation Self-Mcf[facility] Management: 1: *Supine PPT 2: *Supine SKTC 3: *Supine HS stretch 4: *seated HS stretch 5: *standing HS strcetch 6: *Prone press ups. Skilled Intervention: Skilled judgment in the selection of proper modification for activity of daily living/home management based on clinical presentation, deficits, and needs. Educated the patient regarding recommendations and provided written instruction to facilitate compliance. Provided written instruction for activities of daily living techniques to facilitate proper performance and compliance. Modalities: Mechanical Traction Body Region Treated - Mechanical Traction: lumbar Patient Position: hooklying Pounds: 100 Static: no Intermittent: yes Seconds On: 30 Seconds Off: 10 Minutes: 10 Skilled Intervention: Proper administration and selec (more content not included)... [facility] 04-02-2022 Consult note Formatting of th is note might be different from the original. [facility] Speech-Language Pathology Voice Evaluation for Vocal Cord Dysfunction Test Date: 04/02/2022 Patient Name: Taty Loya Date of : 1985 Age: 36 y.o. MR#: [id number] Referring Physician: Pierce Sanchez Length of Session: 1 hour Summary: Taty Loya was referred for a voice evaluation by Dr. Sanchez to rule out vocal cord dysfunction. Pulmonary function and cardiovascular testing have been completed. Results indicate normal spirometry. Taty reports experiencing episodes of dyspnea since May 2021. These events occur during physical activity. Symptoms consistent with vocal cord dysfunction include: Coughing/throat clearing before,during,or after episodes, Dizziness/lightheadedness, Hoarseness, Nasal symptoms (post-nasal drip,congestion,sneezing), Sensation he cannot get enought air, and Tightness in the throat,upper chest/neck . When events occur Taty attempts rest, take deep breaths and relax. Taty Loya states that these activities are sometimes beneficial in reducing symptoms. Use of an albuterol inhaler has demonstrated minimal appreciable change in symptoms. Episodes typically last 15-60 minutes. Lasting effects include hoarseness, fatigue, tightness. Taty reports that he has learned to decrease his activity to limit the number of episodes that he is having and that the number/severity of episodes has decreased over the last few months. Medical history is significant for Asthma, mild reflux, and Psoriatic Arthritis. 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 Under therapeutic guidance, Taty practiced metered breathing techniques in supine, sitting, and standing positions. Taty utilized equal respiratory cycles (one second inhalation and one second exhalation) to gain active control of the respiratory pattern. Metered breathing was also practiced in standing position using visual (mirror) and tactile prompts to assist with monitoring the compensatory, shallow upper chest breathing pattern. Using these cues, Taty was able to identify this pattern and replace it with diaphragmatic breath support instead. Taty is to practice metered breathing techniques six to eight minutes per day, two minutes in each position, using diaphragmatic breath support. Taty is to use metered breathing actively as soon as symptoms of vocal cord dysfunction occur. Impression: Symptoms are consistent with vocal cord dysfunction in the presence of asthma. Symptoms appear consistent based on reported symptoms, lack of appreciable change reported with inhaler use, and difficulty primarily reported with inhalation. Recommendations: 1. Use of metered breathing with diaphragmatic breath support to control symptoms of vocal cord dysfunction. 2. Follow through with recommended vocal hygiene protocol. 3. Patient will follow-up with therapist as needed to discuss progress with prescribed metered breathing exercises and follow through with vocal hygiene protocol. 4. Discuss concerns related to reflux/allergies with PCP. Goals: 1. Patient will paraphrase basic anatomy and physiology of respiration and phonation with 80% accuracy. 2. Patient will complete metered, diaphragmatic breathing techniques in supine, sitting, and standing positions with 80% accuracy and no more than 1 verbal cue (per position). 3. Patient will utilize lower abdominal breath support during light exertion (fast walk, slow jog, jumping jacks, stairs, etc) with 80% accuracy. Thank you for the referral. Nelly Cano M.A., CCC-INSPECTOR EXPERIMENTAL ASSEMBLY Speech-Language Pathologist CC: Referring Physician(s) Electronically signed by Nelly Cano, [facility]3]-INSPECTOR EXPERIMENTAL ASSEMBLY at 04/02/2022 2:26 PM EST [facility] Work Phone: 04-02-2022 Miscellaneous Notes [facility] Speech-Language Pathology Voice Evaluation for Vocal Cord Dysfunction Test Date: 04/02/2022 Patient Name: Taty Loya Date of : 1985 Age: 36 y.o. MR#: [id number] Referring Physician: Pierce Sanchez Length of Session: 1 hour Summary: Taty Loya was referred for a voice evaluation by Dr. Sanchez to rule out vocal cord dysfunction. Pulmonary function and cardiovascular testing have been completed. Results indicate normal spirometry. Taty reports experiencing episodes of dyspnea since May 2021. These events occur during physical activity. Symptoms consistent with vocal cord dysfunction include: Coughing/throat clearing before,during,or after episodes, Dizziness/lightheadedness, Hoarseness, Nasal symptoms (post-nasal drip,congestion,sneezing), Sensation he cannot get enought air, and Tightness in the throat,upper chest/neck . When events occur Taty attempts rest, take deep breaths and relax. Taty Loya states that these activities are sometimes beneficial in reducing symptoms. Use of an albuterol inhaler has demonstrated minimal appreciable change in symptoms. Episodes typically last 15-60 minutes. Lasting effects include hoarseness, fatigue, tightness. Taty reports that he has learned to decrease his activity to limit the number of episodes that he is having and that the number/severity of episodes has decreased over the last few months. Medical history is significant for Asthma, mild reflux, and Psoriatic Arthritis. 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 Under therapeutic guidance, Taty practiced metered breathing techniques in supine, sitting, and standing positions. Taty utilized equal respiratory cycles (one second inhalation and one second exhalation) to gain active control of the respiratory pattern. Metered breathing was also practiced in standing position using visual (mirror) and tactile prompts to assist with monitoring the compensatory, shallow upper chest breathing pattern. Using these cues, Taty was able to identify this pattern and replace it with diaphragmatic breath support instead. Taty is to practice metered breathing techniques six to eight minutes per day, two minutes in each position, using diaphragmatic breath support. Taty is to use metered breathing actively as soon as symptoms of vocal cord dysfunction occur. Impression: Symptoms are consistent with vocal cord dysfunction in the presence of asthma. Symptoms appear consistent based on reported symptoms, lack of appreciable change reported with inhaler use, and difficulty primarily reported with inhalation. Recommendations: 1. Use of metered breathing with diaphragmatic breath support to control symptoms of vocal cord dysfunction. 2. Follow through with recommended vocal hygiene protocol. 3. Patient will follow-up with therapist as needed to discuss progress with prescribed metered breathing exercises and follow through with vocal hygiene protocol. 4. Discuss concerns related to reflux/allergies with PCP. Goals: 1. Patient will paraphrase basic anatomy and physiology of respiration and phonation with 80% accuracy. 2. Patient will complete metered, diaphragmatic breathing techniques in supine, sitting, and standing positions with 80% accuracy and no more than 1 verbal cue (per position). 3. Patient will utilize lower abdominal breath support during light exertion (fast walk, slow jog, jumping jacks, stairs, etc) with 80% accuracy. Thank you for the referral. Nelly Cano M.A., CCC-INSPECTOR EXPERIMENTAL ASSEMBLY Speech-Language Pathologist CC: Referring Physician(s) documented in this encounter [facility] 02-27-2021 Note HNO ID: [id number] Author: An Cage APRN.[employer] Service: ? Author Type: Nurse Practitioner Type: Progress Notes Filed: 02/27/2021 12:41 PM Note Text: February 27, 2021 Subjective Chief Complaint: Cough (Sx started x 1 week with sore throat,congestion,cough and chest tightness that is getting worse.) HPI: Taty Loya is a 35 year old male who presents today for 1 week history of sore throat, nasal congestion, minor production to his cough, chest burning. Patient states he gets bronchitis twice per year and this is similar. Denies any fever, chills, body aches, chest pain, shortness of breath. States his sore throat is weaning. Hx of Asthma. Eating and drinking as norm. No Covid vaccination. States people at [employer] and at work have colds and allergies currently but no exposure to Covid that he is aware of. Has utilized cool mist humidifier and propped himself up with pillows at night. PAST MEDICAL HISTORY Diagnosis Date - Arthritis - Psoriasis No past surgical history on file. FAMILY HISTORY Problem Relation Age of Onset - No Known Problems Mother - Diabetes Father - Heart disease Father Social History Tobacco Use - Smoking status: Never Smoker - Smokeless tobacco: Never Used Vaping Use - Vaping Use: Never used Substance Use Topics - Alcohol use: Never - Drug use: Not on file ALLERGIES No Known Allergies There is no immunization history on file for this patient. Current Medications: TALTZ AUTOINJECTOR 80 mg/mL pen ALBUTEROL INHALATION Inhale as instructed as needed. Review of Systems Constitutional: Negative for chills, fever and malaise/fatigue. HENT: Positive for congestion and sore throat. Negative for ear pain. Eyes: Negative. Respiratory: Positive for cough. Negative for hemoptysis, sputum production, shortness of breath and wheezing. Cardiovascular: Negative. Gastrointestinal: Negative. Genitourinary: Negative. Musculoskeletal: Negative. Skin: Negative. Neurological: Negative. Objective BP 136/90 Pulse 85 Temp (Src) 97.9 (Oral) Resp 16 Ht 5' 11 (1.80m) Wt 225 lb (102.1kg) SpO2 97% BMI 31.39 kg/(m2). Physical Exam Vitals reviewed. Constitutional: General: He is not in acute distress. Appearance: Normal appearance. He is not ill-appearing, toxic-appearing or diaphoretic. HENT: Head: Normocephalic and atraumatic. Right Ear: Tympanic membrane, ear canal and external ear normal. There is no impacted cerumen. Left Ear: Tympanic membrane, ear canal and external ear normal. There is no impacted cerumen. Nose: Nose normal. Mouth/Throat: Mouth: Mucous membranes are moist. Pharynx: Oropharynx is clear. No oropharyngeal exudate or posterior oropharyngeal erythema. Eyes: General: Right eye: No discharge. Left eye: No discharge. Extraocular Movements: Extraocular movements intact. Conjunctiva/sclera: Conjunctivae normal. Pupils: Pupils are equal, round, and reactive to light. Cardiovascular: Rate and Rhythm: Normal rate and regular rhythm. Heart sounds: Normal heart sounds. No murmur heard. No friction rub. No gallop. Pulmonary: Effort: Pulmonary effort is normal. No respiratory distress. Breath sounds: Normal breath sounds. No stridor. No wheezing, rhonchi or rales. Chest: Chest wall: No tenderness. Musculoskeletal: Cervical back: Neck supple. Skin: General: Skin is warm and dry. Capillary Refill: Capillary refill takes less than 2 seconds. Neurological: Mental Status: He is alert and oriented to person, place, and time. Psychiatric: Mood and Affect: Mood normal. Behavior: Behavior normal. Thought Content: Thought content normal. Judgment: Judgment normal. Patient declined Covid testing ASSESSMENT/PLAN: 1. Bronchitis - ICD9: 490, ICD10: J40 Drink plenty of non-caffeinated fluids! For nasal congestion/ear fullness: Flonase twice a day until symptoms are gone. Use a nasal saline rinse (netti pot/squeeze bottle) couple times a day. For sore throat/cough: gargle with salt water, hot tea and honey, cool mist vaporizer, and cough drops Prop yourself up with additional pillows at night Vicks Vapor rub to chest at night Educational pamphlet regarding Bronchitis given - PREDNISONE 20 MG TABLET An Cage APRN.[facility] Evaluation note Diagnosis Vocal cord dysfunction- Primary Other diseases of vocal cords [facility] information [facility] Work Phone: Evaluation note* Diagnosis Acute bilateral low back pain, unspecified whether sciatica present- Primary documented in this encounter [facility] note* Diagnosis Acute bilateral low back pain without sciatica- Primary documented in this encounter [facility] note* Diagnosis Acute bilateral low back pain without sciatica- Primary documented in this encounter [facility] note* Diagnosis Acute bilateral low back pain without sciatica- Primary documented in this encounter [facility] note* Diagnosis Acute bilateral low back pain without sciatica- Primary documented in this encounter [facility] note* Diagnosis Acute bilateral low back pain without sciatica- Primary documented in this encounter [facility] note* Diagnosis Acute bilateral low back pain, unspecified whether sciatica present documented in this encounter [facility] note* Diagnosis Acute bilateral low back pain, unspecified whether sciatica present documented in this encounter [facility] note* Diagnosis Acute bilateral low back pain, unspecified whether sciatica present documented in this encounter [facility] note* Diagnosis Acute bilateral low back pain without sciatica- Primary documented in this encounter [facility] Summary Purpose Family History No Family History Records FoundNo Family History Records FoundNo Family History Records FoundNo Family History Records FoundNo Family History Records FoundNo Family History Records Found Advance Directives No Advanced Directives Records FoundNo Advanced Directives Records FoundNo Advanced Directives Records FoundNo Advanced Directives Records FoundNo Advanced Directives Records FoundNo Advanced Directives Records Found Chief Complaint and Reason for Visit Chief Complaint LAB AND CHEST AND PE LVIS XRAY Additional Source Comments (unrecognized sect ion and content) No Status Records FoundNo Status Records FoundNo Status Records FoundNo Status Records FoundNo Status Records FoundNo Status Records Found INFORMATION SOURCE (unrecogn ized section and content) DATE CREATED AUTHOR 03/04/2018 [facility] DATE CREATED AUTHOR AUTHOR'S ORGANIZ ATION 06/23/2021 [facility] DATE CREATED AUTHOR AUTHOR'S ORGANIZ ATION 04/03/2022 [facility] DATE CREATED AUTHOR AUTHOR'S ORGANIZ ATION 2022 [facility] DATE CREATED AUTHOR AUTHOR'S ORGANIZ ATION 04/29/2023 [facility] DATE CREATED AUTHOR AUTHOR'S ORGANIZ ATION 05/10/2024 [facility] Reason for Visit (unrecogniz ed section and content) Reason Comments Physical Therapy Specialty Diagnoses / Procedures Referred By Contac t Referred To Contact Physical Therapy / PHYSICAL THERAPY Diagnoses M51.17 Intvrt disc disorders w radiculopathy, lumbosacral region M51.37 Other Intervertebral disc degeneration, lumboscaral region M47.817 Spondyls w/o myelopathy or radiculopathy, lumbosacral region Orders in scanned docs Procedures NEW RS PT SPINE Gwen Gonzalez, [address] [place] [address] Theresa Fermin, PT [address] [place] [address] Referral ID Status Reason Start Date Expiration Date V isits Requested Visits Authorized [id number] Authorized 05/17/2023 05/16/2024 99 99 Reason Comments PT Progress Note Specialty Diagnoses / Procedures Referred By Contac t Referred To Contact Speech Pathology / Speech Therapy Diagnoses R SIBILIA/EPIC Procedures VOCAL CORD DYSFUNCTION Pierce Sanchez MD [address] [place] [address] Nelly Cano, [facility]3]-INSPECTOR EXPERIMENTAL ASSEMBLY [address] [place] [address] Referral ID Status Reason Start Date Expiration Date Visits Re quested Visits Authorized [id number] Closed 03/17/2022 05/16/2022 1 1 Reason Comments PT Eval Care Teams (unrecognized sec tion and content) Petroleum Geologist Relationship Specialty Start Date End Date Mala Wan, SOLUTION DESIGN AND ANALYSIS MANAGER-[employer] ATTENDANT [address] [place] [address] PCP - General Family Medicine 04/02/22 Team Status: Active Member Role Status Dates Dr. Xavier Moreno MD Family Provider Active Mala Wan MAT LINKER, MAT LINKER-C Primary Care Provider Active Team Status: Inactive Member Role Status Dates Mala Wan MAT LINKER, MAT LINKER-C Primary Care Provider Active Dr. Sophie Herndon MD Attending Provider, Referring Provider Active Goals (unrecognized section and content) Goals may be documented in a n alternate section Source Comments (unrecognize d section and content) In the event this informatio n is protected by the Federal Confidentiality of Alcohol and Drug Abuse Patient Records regulations: The Federal rules restrict any use of the information to criminally investigate or prosecute any alcohol or drug abuse patient.[facility] the event this information is protected by the Federal Confidentiality of Alcohol and Drug Abuse Patient Records regulations: The Federal rules restrict any use of the information to criminally investigate or prosecute any alcohol or drug abuse patient.[facility] the event this information is protected by the Federal Confidentiality of Alcohol and Drug Abuse Patient Records regulations: The Federal rules restrict any use of the information to criminally investigate or prosecute any alcohol or drug abuse patient.[facility] the event this information is protected by the Federal Confidentiality of Alcohol and Drug Abuse Patient Records regulations: The Federal rules restrict any use of the information to criminally investigate or prosecute any alcohol or drug abuse patient.[facility] the event this information is protected by the Federal Confidentiality of Alcohol and Drug Abuse Patient Records regulations: The Federal rules restrict any use of the information to criminally investigate or prosecute any alcohol or drug abuse patient.[facility] the event this information is protected by the Federal Confidentiality of Alcohol and Drug Abuse Patient Records regulations: The Federal rules restrict any use of the information to criminally investigate or prosecute any alcohol or drug abuse patient.[facility] the event this information is protected by the Federal Confidentiality of Alcohol and Drug Abuse Patient Records regulations: The Federal rules restrict any use of the information to criminally investigate or prosecute any alcohol or drug abuse patient.[facility] the event this information is protected by the Federal Confidentiality of Alcohol and Drug Abuse Patient Records regulations: The Federal rules restrict any use of the information to criminally investigate or prosecute any alcohol or drug abuse patient.[facility] the event this information is protected by the Federal Confidentiality of Alcohol and Drug Abuse Patient Records regulations: The Federal rules restrict any use of the information to criminally investigate or prosecute any alcohol or drug abuse patient.[facility] the event this information is protected by the Federal Confidentiality of Alcohol and Drug Abuse Patient Records regulations: The Federal rules restrict any use of the information to criminally investigate or prosecute any alcohol or drug abuse patient.[facility] the event this information is protected by the Federal Confidentiality of Alcohol and Drug Abuse Patient Records regulations: The Federal rules restrict any use of the information to criminally investigate or prosecute any alcohol or drug abuse patient.[facility] the event this information is protected by the Federal Confidentiality of Alcohol and Drug Abuse Patient Records regulations: The Federal rules restrict any use of the information to criminally investigate or prosecute any alcohol or drug abuse patient.[facility] the event this information is protected by the Federal Confidentiality of Alcohol and Drug Abuse Patient Records regulations: The Federal rules restrict any use of the information to criminally investigate or prosecute any alcohol or drug abuse patient.[facility] FOR RECORDS PERTAINING TO PATIENTS WHO ARE OR HAVE BEEN ENROLLED IN A CHEMICAL DEPENDENCY/SUBSTANCEABUSE PROGRAM, SOME INFORMATION MAY BE OMITTED. This clinical summary was aggregated from multiple sources. Caution should be exercised in using it in the provision of clinical care. This summary normalizes information from multiple sources, and as a consequence, information in this document may materially change the coding, format and clinical context of patient data. In addition, data may be omitted in some cases. CLINICAL DECISIONS SHOULD BE BASED ON THE PRIMARY CLINICAL RECORDS. [facility] [employer] [facility]. provides no warranty or guarantee of the accuracy or completeness of information in this document.
[2024-11-06 14:09] LABS: ANTINUCLEAR ANTIBODIES DIRECT Negative (Negative)
[2024-11-07 06:08] LABS: CCP IgG Antibodies 15 units (0-19); QNTFERON TB Mitogen Value > 10.00 IU/mL (.); QNTFERON TB Nil Value 0.03 IU/mL (.); QNTFERON TB1+ Ag Value 0.04 IU/mL (.); QNTFERON TB2+ Ag Value 0.04 IU/mL (.); QNTIFERON TB Positive Criteria Negative (Negative)
== END | disposition home or self-care (01) ==
LOC: MTLAB 11:46
PROVIDERS: Referring Provider Internal Medicine Rheumatology; Visit Provider Internal Medicine Rheumatology
DX: L40.59 Other psoriatic arthropathy (principal); M79.7 Fibromyalgia; L40.8 Other psoriasis; Z79.899 Other long term (current) drug therapy
CPT/HCPCS: 36415; 80053; 85025; 85652; 86038; 86140; 86200; 86431; 86480; 86706; 86803; 87340